=== PATIENT | male | born 1940 | race Caucasian/White ===

== ENCOUNTER 2017-06-27 16:23 | Emergency (ER) | payer MEDICARE, MEDICAID ==
[~2017-06-27] VITALS: Ht 172.7 cm; Wt 81.1 kg
[~2017-06-27 16:23] MED LIST: ALBU8.5H4 IH; ALBU8.5H8 INH; FOLI-43 PO; HYDR-3972 PO; HYDR-569 PO; LORA2TAB PO; PANT40TA39 PO; PROM25TA14 PO; THI100T PO
[2017-06-27 17:01] LABS: BASOPHILS # (AUTO) 0.3 X10'3 (0-0.2); BASOPHILS % (AUTO) 1.6 % (0-1); EOSINOPHILS # (AUTO) 0.2 X10'3 (0-0.9); EOSINOPHILS % (AUTO) 1.1 % (0-6); HEMATOCRIT 38.7 % (42.0-52.0); HEMOGLOBIN 12.6 g/dl (14.0-17.9); LYMPHOCYTES # (AUTO) 2.2 X10'3 (1.1-4.8); LYMPHOCYTES % (AUTO) 11.4 % (21-51); MEAN CORPUSCULAR HEMOGLOBIN 34.4 PG (27.0-31.0); MEAN CORPUSCULAR HGB CONC 32.5 % (33.0-36.5); MEAN CORPUSCULAR VOLUME 105.9 FL (78-98); MEAN PLATELET VOLUME 7.8 FL (7.4-10.4); MONOCYTES # (AUTO) 1.6 X10'3 (0-0.9); MONOCYTES % (AUTO) 8.4 % (2-12); NEUTROPHILS % (AUTO) 77.5 % (42-75); PLATELET COUNT 549 X10'3 (140-440); RED BLOOD COUNT 3.65 X10'6 (4.70-6.10); RED CELL DISTRIBUTION WIDTH 14.4 % (11.5-14.5); WHITE BLOOD COUNT 19.4 X10'3 (4.5-11.0)
[2017-06-27 17:12] LABS: PARTIAL THROMBOPLASTIN TIME 30 SECONDS (22-32); PROTHROMBIN TIME 10.8 SECONDS (9.0-12.0)
[2017-06-27 17:17] LABS: ALANINE AMINOTRANSFERASE 74 U/L (12-78); ALBUMIN/GLOBULIN RATIO 0.6 (1.1-1.5); ALKALINE PHOSPHATASE 120 IU/L (46-116); ANION GAP 11 (8-16); ASPARTATE AMINO TRANSFERASE 79 U/L (10-37); BILIRUBIN,TOTAL 0.4 MG/DL (0.1-1.0); BLOOD UREA NITROGEN 14 MG/DL (7-18); BUN/CREATININE RATIO 16.3 (5.4-32.0); CALCIUM 8.8 MG/DL (8.5-10.1); CHLORIDE 101 MMOL/L (99-107); CREATININE 0.86 MG/DL (0.60-1.10); GLUCOSE 119 MG/DL (70-104); POTASSIUM 3.9 MMOL/L (3.5-5.1); SODIUM 140 MMOL/L (135-145); TOTAL CARBON DIOXIDE 27.6 MMOL/L (24-32); TOTAL PROTEIN 7.7 G/DL (6.4-8.2); eGFR 86 ML/MIN
[2017-06-27] MEDS ORDERED: morphine 5 MG/ML injection IV ONE (19:05)
[2017-06-27] MEDS ORDERED: HYDROcodone/acetaminophen 10/325mg tab PO ONE (19:05)
[2017-06-27] MEDS ORDERED: HYDR-565 PO (19:35)
[2017-06-27 19:50] VITALS: BP 148/73
[2017-07-02] MEDS ORDERED: ONDA4TAB6 PO (06:11)
[2017-07-02] MEDS ORDERED: HYDR-565 PO (06:18)
[2017-07-02] MEDS ORDERED: METR500T4 PO (07:38)
[2017-07-02] MEDS ORDERED: LEVO500T2 PO (07:38)
== END 2017-06-27 19:51 | disposition home or self-care (01) ==
LOC: ER 16:23
DX: R07.89 Other chest pain (principal); J44.9 Chronic obstructive pulmonary disease, unspecified; G89.29 Other chronic pain; Z87.11 Personal history of peptic ulcer disease; Z88.5 Allergy status to narcotic agent
CPT/HCPCS: 36415; 71010; 80053; 84484; 85025; 85610; 85730; 93005; 96372; 99285; J2270

== ENCOUNTER 2017-07-07 12:21 | Inpatient (IN) | payer MEDICARE, MEDICAID ==
[~2017-07-07] VITALS: Ht 172.7 cm; Wt 87.3 kg
[~2017-07-07 12:21] MED LIST changes: +HYDR-565 PO; +LEVO500T2 PO; +METR500T4 PO; +ONDA4TAB6 PO; +atropine 0.1mg/ml 10ml syringe ONE; +calcium chloride 100 MG/1 ML inj IV ONE; +epiNEPHrine 0.1mg/ml 10ml syringe ONE; +etomidate 2mg/ml inj. ONE
[2017-07-07 14:06] LABS: BASOPHILS % (AUTO) 0.1 % (0-1); EOSINOPHILS # (AUTO) 0.1 X10'3 (0-0.9); HEMATOCRIT 36.4 % (42.0-52.0); HEMOGLOBIN 11.9 g/dl (14.0-17.9); LYMPHOCYTES # (AUTO) 1.6 X10'3 (1.1-4.8); LYMPHOCYTES % (AUTO) 10.8 % (21-51); MEAN CORPUSCULAR HEMOGLOBIN 33.9 PG (27.0-31.0); MEAN CORPUSCULAR HGB CONC 32.7 % (33.0-36.5); MEAN CORPUSCULAR VOLUME 103.8 FL (78-98); MEAN PLATELET VOLUME 7.6 FL (7.4-10.4); MONOCYTES # (AUTO) 1.3 X10'3 (0-0.9); MONOCYTES % (AUTO) 8.9 % (2-12); NEUTROPHILS # (AUTO) 11.9 X10'3 (1.8-7.7); NEUTROPHILS % (AUTO) 79.2 % (42-75); PLATELET COUNT 465 X10'3 (140-440); RED CELL DISTRIBUTION WIDTH 14.1 % (11.5-14.5); WHITE BLOOD COUNT 15.1 X10'3 (4.5-11.0)
[2017-07-07] MEDS ORDERED: normal saline 1000ML IV soln IVB ONE (14:10)
[2017-07-07] MEDS ORDERED: magnesium 2GM in 50ml NS 50 ML IV ONE (14:15)
[2017-07-07 14:16] LABS: PARTIAL THROMBOPLASTIN TIME 34 SECONDS (22-32); PROTHROMBIN TIME 10.8 SECONDS (9.0-12.0)
[2017-07-07 14:20] LABS: ALANINE AMINOTRANSFERASE 36 U/L (12-78); ALBUMIN 2.9 G/DL (3.4-5.0); ALBUMIN/GLOBULIN RATIO 0.6 (1.1-1.5); ALKALINE PHOSPHATASE 111 IU/L (46-116); ANION GAP 7 (8-16); ASPARTATE AMINO TRANSFERASE 45 U/L (10-37); BILIRUBIN,TOTAL 0.5 MG/DL (0.1-1.0); BLOOD UREA NITROGEN 16 MG/DL (7-18); CALCIUM 8.5 MG/DL (8.5-10.1); CHLORIDE 102 MMOL/L (99-107); GLUCOSE 106 MG/DL (70-104); POTASSIUM 4.1 MMOL/L (3.5-5.1); SODIUM 137 MMOL/L (135-145); TOTAL CARBON DIOXIDE 27.7 MMOL/L (24-32); TOTAL PROTEIN 7.6 G/DL (6.4-8.2); eGFR 72 ML/MIN
[2017-07-07 16:45] LABS: CLARITY,URINE CLEAR (Clear); GLUCOSE, URINE NEGATIVE (Neg); KETONES,URINE NEGATIVE (Neg); LEUKOCYTE ESTERASE ,URINE NEGATIVE (Neg); NITRITES, URINE NEGATIVE (Neg); OCCULT BLOOD,URINE NEGATIVE (Neg); PROTEIN,URINE NEGATIVE (Neg)
[2017-07-07 16:47] LABS: UA COLLECTION TYPE URINAL
[2017-07-07 16:48] LABS: COLOR,URINE AMBER (Yellow)
[2017-07-07] MEDS ORDERED: adenosine 3mg/ml 2ml vial IV ONE (17:55)
[2017-07-07] MEDS ORDERED: ondansetron/PF 4mg/2ml inj IV ONE (18:50)
[2017-07-07] MEDS ORDERED: HYDROmorphone 1 mg/ml syringe IV ONE (18:50)
[2017-07-07] MEDS ORDERED: normal saline 1000ml 1,000 ML IV ONE (20:35)
[2017-07-07] MEDS: HYDROmorphone inj. 0.5 MG/0.5 ML DISP.SYRIN IV PRN (21:35)
[2017-07-07] MEDS ORDERED: diltiazem 5mg/ml 5ml inj. IV ONE ×2 (22:25→22:30)
[2017-07-07] MEDS ORDERED: mag hydrox/Alum hydrox/simeth 30ml oral suspension PO PRN (23:15)
[2017-07-07] MEDS ORDERED: magnesium hydroxide 30ml (MOM) UD suspension PO PRN (23:15)
[2017-07-07] MEDS ORDERED: acetaminophen 325mg tablet PO PRN ×2 (23:15)
[2017-07-08] MEDS: thiamine 100mg tablet PO SCH ×2 (00:10→08:01)
[2017-07-08] MEDS: HYDROmorphone inj. 0.5 MG/0.5 ML DISP.SYRIN IV PRN ×5 (02:43→23:30)
[2017-07-08 07:19] LABS: BASOPHILS # (AUTO) 0.1 X10'3 (0-0.2); BASOPHILS % (AUTO) 0.6 % (0-1); EOSINOPHILS # (AUTO) 0.2 X10'3 (0-0.9); EOSINOPHILS % (AUTO) 2.2 % (0-6); HEMATOCRIT 31.6 % (42.0-52.0); HEMOGLOBIN 10.2 g/dl (14.0-17.9); LYMPHOCYTES # (AUTO) 1.8 X10'3 (1.1-4.8); LYMPHOCYTES % (AUTO) 16.5 % (21-51); MEAN CORPUSCULAR HEMOGLOBIN 33.3 PG (27.0-31.0); MEAN CORPUSCULAR HGB CONC 32.2 % (33.0-36.5); MEAN CORPUSCULAR VOLUME 103.7 FL (78-98); MEAN PLATELET VOLUME 7.4 FL (7.4-10.4); MONOCYTES # (AUTO) 1.2 X10'3 (0-0.9); NEUTROPHILS # (AUTO) 7.7 X10'3 (1.8-7.7); NEUTROPHILS % (AUTO) 69.7 % (42-75); PLATELET COUNT 436 X10'3 (140-440); RED BLOOD COUNT 3.05 X10'6 (4.70-6.10); RED CELL DISTRIBUTION WIDTH 14.2 % (11.5-14.5); WHITE BLOOD COUNT 11.1 X10'3 (4.5-11.0)
[2017-07-08 07:32] LABS: ALBUMIN 2.4 G/DL (3.4-5.0); ANION GAP 5 (8-16); BLOOD UREA NITROGEN 12 MG/DL (7-18); BUN/CREATININE RATIO 15.2 (5.4-32.0); CALCIUM 8.1 MG/DL (8.5-10.1); CHLORIDE 107 MMOL/L (99-107); CREATININE 0.79 MG/DL (0.60-1.10); GLUCOSE 92 MG/DL (70-104); POTASSIUM 4.2 MMOL/L (3.5-5.1); SODIUM 140 MMOL/L (135-145); TOTAL CARBON DIOXIDE 27.6 MMOL/L (24-32); eGFR > 90 ML/MIN
[2017-07-08] MEDS: predniSONE 5mg tablet PO SCH (08:01)
[2017-07-08] MEDS: fluconazole 100mg tablet PO SCH (08:01)
[2017-07-08] MEDS: pantoprazole 40mg Tablet.DR PO SCH (08:01)
[2017-07-08] MEDS: enoxaparin 40mg/0.4ml syringe SUBCUT SCH (08:02)
[2017-07-08 08:50] VITALS: BP 127/70
[2017-07-08] MEDS: diltiazem CD 180mg cap (once-daily) PO SCH (10:00)
[2017-07-08 11:00] VITALS: BP 120/69
[2017-07-08 15:00] VITALS: BP 121/63
[2017-07-08] MEDS: ipratropium/albuterol 3ml nebule NEB PRN ×2 (15:30→20:14)
[2017-07-08 19:00] VITALS: BP 114/60
[2017-07-08] MEDS: tamsulosin 0.4mg capsule PO SCH (20:34)
[2017-07-08] MEDS ORDERED: LIDOcaine Viscous 15ml cup MM ONE (20:55)
[2017-07-08] MEDS ORDERED: mag hydrox/Alum hydrox/simeth 30ml oral suspension PO ONE (20:55)
[2017-07-08] MEDS ORDERED: temazepam 15mg capsule PO ONE (22:50)
[2017-07-08 23:00] VITALS: BP 113/69
[2017-07-09 03:00] VITALS: BP 104/56
[2017-07-09 05:46] LABS: BASOPHILS % (AUTO) 0.3 % (0-1); EOSINOPHILS # (AUTO) 0.3 X10'3 (0-0.9); EOSINOPHILS % (AUTO) 2.4 % (0-6); HEMATOCRIT 28.4 % (42.0-52.0); LYMPHOCYTES # (AUTO) 1.6 X10'3 (1.1-4.8); LYMPHOCYTES % (AUTO) 14.7 % (21-51); MEAN CORPUSCULAR HGB CONC 31.6 % (33.0-36.5); MEAN CORPUSCULAR VOLUME 104.5 FL (78-98); MEAN PLATELET VOLUME 7.6 FL (7.4-10.4); MONOCYTES # (AUTO) 1.3 X10'3 (0-0.9); MONOCYTES % (AUTO) 12.4 % (2-12); NEUTROPHILS # (AUTO) 7.5 X10'3 (1.8-7.7); NEUTROPHILS % (AUTO) 70.2 % (42-75); PLATELET COUNT 382 X10'3 (140-440); RED BLOOD COUNT 2.72 X10'6 (4.70-6.10); WHITE BLOOD COUNT 10.7 X10'3 (4.5-11.0)
[2017-07-09 06:00] VITALS: BP 109/61
[2017-07-09 06:15] LABS: ALBUMIN 2.3 G/DL (3.4-5.0); ANION GAP 4 (8-16); BLOOD UREA NITROGEN 14 MG/DL (7-18); CHLORIDE 104 MMOL/L (99-107); GLUCOSE 123 MG/DL (70-104); POTASSIUM 3.9 MMOL/L (3.5-5.1); SODIUM 137 MMOL/L (135-145); TOTAL CARBON DIOXIDE 29.1 MMOL/L (24-32); eGFR > 90 ML/MIN
[2017-07-09] MEDS: HYDROmorphone inj. 0.5 MG/0.5 ML DISP.SYRIN IV PRN ×3 (08:40→21:13)
[2017-07-09] MEDS: predniSONE 5mg tablet PO SCH (08:49)
[2017-07-09] MEDS: pantoprazole 40mg Tablet.DR PO SCH (08:49)
[2017-07-09] MEDS: thiamine 100mg tablet PO SCH (08:49)
[2017-07-09] MEDS: diltiazem CD 180mg cap (once-daily) PO SCH (08:49)
[2017-07-09] MEDS: enoxaparin 40mg/0.4ml syringe SUBCUT SCH (08:50)
[2017-07-09] MEDS: fluconazole 100mg tablet PO SCH (08:54)
[2017-07-09 11:00] VITALS: BP 113/67
[2017-07-09] MEDS: HYDROcodone/acetaminophen 5mg/325mg tablet PO PRN (11:58)
[2017-07-09 15:00] VITALS: BP 135/56
[2017-07-09 19:00] VITALS: BP 125/56
[2017-07-09] MEDS: tamsulosin 0.4mg capsule PO SCH (21:13)
[2017-07-09 23:00] VITALS: BP 137/70
[2017-07-10] VITALS (10 sets, daily range): BP systolic 92–138; BP diastolic 39–66
[2017-07-10] MEDS: HYDROmorphone inj. 0.5 MG/0.5 ML DISP.SYRIN IV PRN ×3 (00:23→19:23)
[2017-07-10] MEDS: ondansetron/PF 4mg/2ml inj IV PRN (04:46)
[2017-07-10 06:19] LABS: BASOPHILS % (AUTO) 0.1 % (0-1); EOSINOPHILS # (AUTO) 0.3 X10'3 (0-0.9); HEMATOCRIT 23.8 % (42.0-52.0); HEMOGLOBIN 7.7 g/dl (14.0-17.9); LYMPHOCYTES # (AUTO) 1.2 X10'3 (1.1-4.8); LYMPHOCYTES % (AUTO) 8.3 % (21-51); MEAN CORPUSCULAR HEMOGLOBIN 33.7 PG (27.0-31.0); MEAN CORPUSCULAR HGB CONC 32.4 % (33.0-36.5); MEAN CORPUSCULAR VOLUME 103.9 FL (78-98); MONOCYTES # (AUTO) 1.2 X10'3 (0-0.9); MONOCYTES % (AUTO) 8.4 % (2-12); NEUTROPHILS # (AUTO) 11.6 X10'3 (1.8-7.7); NEUTROPHILS % (AUTO) 81.2 % (42-75); PLATELET COUNT 350 X10'3 (140-440); RED BLOOD COUNT 2.29 X10'6 (4.70-6.10); RED CELL DISTRIBUTION WIDTH 14.1 % (11.5-14.5); WHITE BLOOD COUNT 14.2 X10'3 (4.5-11.0)
[2017-07-10 06:58] LABS: ALBUMIN 2.2 G/DL (3.4-5.0); ANION GAP 7 (8-16); BLOOD UREA NITROGEN 11 MG/DL (7-18); BUN/CREATININE RATIO 12.8 (5.4-32.0); CHLORIDE 106 MMOL/L (99-107); CREATININE 0.86 MG/DL (0.60-1.10); GLUCOSE 144 MG/DL (70-104); POTASSIUM 3.8 MMOL/L (3.5-5.1); SODIUM 141 MMOL/L (135-145); TOTAL CARBON DIOXIDE 27.7 MMOL/L (24-32); eGFR 86 ML/MIN
[2017-07-10] MEDS: pantoprazole 40mg Tablet.DR PO SCH (08:18)
[2017-07-10] MEDS: fluconazole 100mg tablet PO SCH (08:18)
[2017-07-10] MEDS: diltiazem CD 180mg cap (once-daily) PO SCH (08:18)
[2017-07-10] MEDS: thiamine 100mg tablet PO SCH (08:18)
[2017-07-10] MEDS: predniSONE 5mg tablet PO SCH (08:19)
[2017-07-10 09:03] LABS: BASOPHILS % (AUTO) 0.2 % (0-1); EOSINOPHILS # (AUTO) 0.2 X10'3 (0-0.9); EOSINOPHILS % (AUTO) 1.5 % (0-6); HEMATOCRIT 23.9 % (42.0-52.0); HEMOGLOBIN 7.7 g/dl (14.0-17.9); LYMPHOCYTES # (AUTO) 1.3 X10'3 (1.1-4.8); LYMPHOCYTES % (AUTO) 9.9 % (21-51); MEAN CORPUSCULAR HEMOGLOBIN 33.4 PG (27.0-31.0); MEAN CORPUSCULAR VOLUME 104.4 FL (78-98); MEAN PLATELET VOLUME 7.1 FL (7.4-10.4); MONOCYTES # (AUTO) 1.1 X10'3 (0-0.9); MONOCYTES % (AUTO) 8.2 % (2-12); NEUTROPHILS # (AUTO) 10.5 X10'3 (1.8-7.7); NEUTROPHILS % (AUTO) 80.2 % (42-75); PLATELET COUNT 378 X10'3 (140-440); RED BLOOD COUNT 2.29 X10'6 (4.70-6.10); RED CELL DISTRIBUTION WIDTH 14.3 % (11.5-14.5); WHITE BLOOD COUNT 13.1 X10'3 (4.5-11.0)
[2017-07-10 09:46] LABS: OCCULT BLOOD STOOL POSITIVE (Neg)
[2017-07-10] MEDS: HYDROcodone/acetaminophen 5mg/325mg tablet PO PRN (12:24)
[2017-07-10] MEDS ORDERED: diphenhydrAMINE 25mg capsule PO ONE (14:50)
[2017-07-10] MEDS ORDERED: acetaminophen 325mg tablet PO ONE (14:50)
[2017-07-10] MEDS: pantoprazole 40MG/NS 100ML BAG 100 ML IV SCH ×3 (15:35→23:40)
[2017-07-10] MEDS: folic acid 1mg tablet PO SCH (15:39)
[2017-07-10] MEDS ORDERED: furosemide 40mg/4ml inj IV ONE (16:50)
[2017-07-10] MEDS: tamsulosin 0.4mg capsule PO SCH (20:53)
[2017-07-10] MEDS ORDERED: furosemide 40mg/4ml inj ONE (23:01)
[2017-07-10 23:38] LABS: BASOPHILS % (AUTO) 0.2 % (0-1); EOSINOPHILS # (AUTO) 0.2 X10'3 (0-0.9); EOSINOPHILS % (AUTO) 1.7 % (0-6); HEMOGLOBIN 7.2 g/dl (14.0-17.9); LYMPHOCYTES # (AUTO) 2.1 X10'3 (1.1-4.8); MEAN CORPUSCULAR HEMOGLOBIN 33.6 PG (27.0-31.0); MEAN CORPUSCULAR HGB CONC 33.1 % (33.0-36.5); MEAN CORPUSCULAR VOLUME 101.4 FL (78-98); MEAN PLATELET VOLUME 7.7 FL (7.4-10.4); MONOCYTES # (AUTO) 1.5 X10'3 (0-0.9); MONOCYTES % (AUTO) 13.6 % (2-12); NEUTROPHILS # (AUTO) 6.9 X10'3 (1.8-7.7); NEUTROPHILS % (AUTO) 64.5 % (42-75); PLATELET COUNT 321 X10'3 (140-440); RED BLOOD COUNT 2.14 X10'6 (4.70-6.10); RED CELL DISTRIBUTION WIDTH 14.7 % (11.5-14.5); WHITE BLOOD COUNT 10.7 X10'3 (4.5-11.0)
[2017-07-10 23:42] LABS: HEMATOCRIT 21.7 % (42.0-52.0)
[2017-07-11] VITALS (31 sets, daily range): BP systolic 86–149; BP diastolic 47–67
[2017-07-11] MEDS: pantoprazole 40MG/NS 100ML BAG 100 ML IV SCH ×5 (01:00→21:00)
[2017-07-11] MEDS: HYDROcodone/acetaminophen 5mg/325mg tablet PO PRN ×2 (01:32→21:21)
[2017-07-11] MEDS: HYDROmorphone inj. 0.5 MG/0.5 ML DISP.SYRIN IV PRN ×3 (04:57→19:12)
[2017-07-11 06:49] LABS: BASOPHILS % (AUTO) 0 % (0-1); EOSINOPHILS # (AUTO) 0.2 X10'3 (0-0.9); HEMATOCRIT 28.6 % (42.0-52.0); HEMOGLOBIN 9.5 g/dl (14.0-17.9); LYMPHOCYTES % (AUTO) 17.2 % (21-51); MEAN CORPUSCULAR HEMOGLOBIN 32.3 PG (27.0-31.0); MEAN CORPUSCULAR HGB CONC 33.1 % (33.0-36.5); MEAN CORPUSCULAR VOLUME 97.5 FL (78-98); MEAN PLATELET VOLUME 8.1 FL (7.4-10.4); MONOCYTES # (AUTO) 1.4 X10'3 (0-0.9); MONOCYTES % (AUTO) 12.2 % (2-12); NEUTROPHILS # (AUTO) 7.8 X10'3 (1.8-7.7); NEUTROPHILS % (AUTO) 68.6 % (42-75); PLATELET COUNT 285 X10'3 (140-440); RED BLOOD COUNT 2.93 X10'6 (4.70-6.10); RED CELL DISTRIBUTION WIDTH 16.5 % (11.5-14.5); WHITE BLOOD COUNT 11.4 X10'3 (4.5-11.0)
[2017-07-11 06:59] LABS: ALBUMIN 2.3 G/DL (3.4-5.0); ANION GAP 7 (8-16); BLOOD UREA NITROGEN 29 MG/DL (7-18); BUN/CREATININE RATIO 33.3 (5.4-32.0); CALCIUM 8.1 MG/DL (8.5-10.1); CHLORIDE 106 MMOL/L (99-107); CREATININE 0.87 MG/DL (0.60-1.10); GLUCOSE 98 MG/DL (70-104); POTASSIUM 4.4 MMOL/L (3.5-5.1); SODIUM 141 MMOL/L (135-145); TOTAL CARBON DIOXIDE 28.5 MMOL/L (24-32); eGFR 85 ML/MIN
[2017-07-11] MEDS ORDERED: fentaNYL/PF 50MCG/1 ML 2ML syringe ONE (07:00)
[2017-07-11] MEDS ORDERED: MIDAZolam 1mg/ml 10ml vial ONE (07:01)
[2017-07-11] MEDS ORDERED: LIDOcaine Viscous 15ml cup ONE (07:02)
[2017-07-11] MEDS ORDERED: normal saline 1000ml 1,000 ML IV SCH (08:36)
[2017-07-11] MEDS ORDERED: fentaNYL/PF 50MCG/1 ML 2ML syringe IV PRN (08:40)
[2017-07-11] MEDS ORDERED: LIDOcaine Viscous 15ml cup PO ONE (08:40)
[2017-07-11] MEDS ORDERED: simethicone 40mg/0.6ml oral drops 30ml MC ONE (08:40)
[2017-07-11] MEDS ORDERED: MIDAZolam 5mg/5ml vial IV PRN (08:40)
[2017-07-11] MEDS: predniSONE 5mg tablet PO SCH (09:04)
[2017-07-11] MEDS: diltiazem CD 180mg cap (once-daily) PO SCH (09:04)
[2017-07-11] MEDS: thiamine 100mg tablet PO SCH (09:04)
[2017-07-11] MEDS: folic acid 1mg tablet PO SCH (09:04)
[2017-07-11 13:33] LABS: BASOPHILS # (AUTO) 0.1 X10'3 (0-0.2); BASOPHILS % (AUTO) 0.8 % (0-1); EOSINOPHILS # (AUTO) 0.2 X10'3 (0-0.9); EOSINOPHILS % (AUTO) 2.3 % (0-6); HEMATOCRIT 27.1 % (42.0-52.0); HEMOGLOBIN 8.8 g/dl (14.0-17.9); MEAN CORPUSCULAR HEMOGLOBIN 31.7 PG (27.0-31.0); MEAN CORPUSCULAR HGB CONC 32.2 % (33.0-36.5); MEAN CORPUSCULAR VOLUME 98.4 FL (78-98); MEAN PLATELET VOLUME 7.9 FL (7.4-10.4); MONOCYTES # (AUTO) 0.8 X10'3 (0-0.9); MONOCYTES % (AUTO) 7.7 % (2-12); NEUTROPHILS # (AUTO) 8.3 X10'3 (1.8-7.7); NEUTROPHILS % (AUTO) 79.2 % (42-75); PLATELET COUNT 337 X10'3 (140-440); RED BLOOD COUNT 2.76 X10'6 (4.70-6.10); RED CELL DISTRIBUTION WIDTH 16.6 % (11.5-14.5); WHITE BLOOD COUNT 10.4 X10'3 (4.5-11.0)
[2017-07-11 19:11] LABS: BASOPHILS % (AUTO) 0.4 % (0-1); EOSINOPHILS # (AUTO) 0.2 X10'3 (0-0.9); EOSINOPHILS % (AUTO) 1.5 % (0-6); LYMPHOCYTES % (AUTO) 16.8 % (21-51); MEAN CORPUSCULAR HEMOGLOBIN 31.9 PG (27.0-31.0); MEAN CORPUSCULAR HGB CONC 32.5 % (33.0-36.5); MEAN CORPUSCULAR VOLUME 98.1 FL (78-98); MEAN PLATELET VOLUME 8.1 FL (7.4-10.4); MONOCYTES # (AUTO) 1.1 X10'3 (0-0.9); MONOCYTES % (AUTO) 9.1 % (2-12); NEUTROPHILS # (AUTO) 8.6 X10'3 (1.8-7.7); NEUTROPHILS % (AUTO) 72.2 % (42-75); PLATELET COUNT 273 X10'3 (140-440); RED BLOOD COUNT 2.14 X10'6 (4.70-6.10)
[2017-07-11] MEDS: tamsulosin 0.4mg capsule PO SCH (21:11)
[2017-07-12] VITALS (45 sets, daily range): BP systolic 39–200; BP diastolic 22–100
[2017-07-12] MEDS ORDERED: normal saline 1000ml 1,000 ML IV ONE ×2 (01:20→01:40)
[2017-07-12] MEDS: pantoprazole 40MG/NS 100ML BAG 100 ML IV SCH ×5 (01:40→20:21)
[2017-07-12 02:24] LABS: BASOPHILS % (AUTO) 0.3 % (0-1); EOSINOPHILS # (AUTO) 0.1 X10'3 (0-0.9); EOSINOPHILS % (AUTO) 1.1 % (0-6); LYMPHOCYTES # (AUTO) 1.6 X10'3 (1.1-4.8); LYMPHOCYTES % (AUTO) 14.8 % (21-51); MEAN CORPUSCULAR HGB CONC 33.3 % (33.0-36.5); MEAN CORPUSCULAR VOLUME 93.2 FL (78-98); MEAN PLATELET VOLUME 7.9 FL (7.4-10.4); MONOCYTES # (AUTO) 1.2 X10'3 (0-0.9); MONOCYTES % (AUTO) 11.2 % (2-12); NEUTROPHILS % (AUTO) 72.6 % (42-75); PLATELET COUNT 161 X10'3 (140-440); RED CELL DISTRIBUTION WIDTH 17.9 % (11.5-14.5)
[2017-07-12 02:26] LABS: HEMATOCRIT 18.6 % (42.0-52.0); HEMOGLOBIN 6.2 g/dl (14.0-17.9)
[2017-07-12 02:33] LABS: INR 1.3 INR; PROTHROMBIN TIME 13.2 SECONDS (9.0-12.0)
[2017-07-12] MEDS ORDERED: octreotide inj. 1,250 MCG in normal saline 250ml IV soln 243.75 ML IV SCH (02:35)
[2017-07-12] MEDS ORDERED: desmopressin inj. 24 MCG in normal saline 100ml IV soln 94 ML IV ONE (02:35)
[2017-07-12] MEDS ORDERED: octreotide 200mcg/ml 5ml vial ONE (02:40)
[2017-07-12 02:41] LABS: ALANINE AMINOTRANSFERASE 19 U/L (12-78); ALBUMIN 1.3 G/DL (3.4-5.0); ALBUMIN/GLOBULIN RATIO 0.6 (1.1-1.5); ALKALINE PHOSPHATASE 42 IU/L (46-116); ANION GAP 7 (8-16); ASPARTATE AMINO TRANSFERASE 25 U/L (10-37); BILIRUBIN,TOTAL 0.7 MG/DL (0.1-1.0); BLOOD UREA NITROGEN 30 MG/DL (7-18); BUN/CREATININE RATIO 28.6 (5.4-32.0); CALCIUM 6.7 MG/DL (8.5-10.1); CHLORIDE 111 MMOL/L (99-107); CREATININE 1.05 MG/DL (0.60-1.10); GLUCOSE 153 MG/DL (70-104); MAGNESIUM 1.4 MG/DL (1.5-2.4); PHOSPHORUS 3.9 MG/DL (2.3-4.5); POTASSIUM 4.6 MMOL/L (3.5-5.1); SODIUM 142 MMOL/L (135-145); TOTAL CARBON DIOXIDE 24.5 MMOL/L (24-32); TOTAL PROTEIN 3.4 G/DL (6.4-8.2); TROPONIN I < 0.04 NG/ML (0.0-0.05); eGFR 68 ML/MIN
[2017-07-12] MEDS ORDERED: DESMOPRESSIN ONE (02:41)
[2017-07-12] MEDS ORDERED: tranexamic acid inj. 800 MG in normal saline 100ml IV soln 92 ML IV ONE (02:55)
[2017-07-12] MEDS ORDERED: calcium chloride 100 MG/1 ML inj IV ONE ×4 (02:55→06:30)
[2017-07-12] MEDS ORDERED: tranexamic acid 100mg/ml inj. ONE (02:56)
[2017-07-12] MEDS ORDERED: succinylcholine 20mg/ml inj IV ONE (03:26)
[2017-07-12] MEDS ORDERED: NORepinephrine 8mg/ 250ml NS 250 ML IV ONE ×2 (03:33→17:44)
[2017-07-12] MEDS ORDERED: vasoPRESSIN 20 units/ml inj. ONE ×2 (03:35→03:37)
[2017-07-12] MEDS ORDERED: ipratropium/albuterol 3ml nebule NEB PRN (03:45)
[2017-07-12] MEDS ORDERED: MIDAZolam 5mg/ml 2ml vial ONE ×2 (03:45→03:52)
[2017-07-12] MEDS ORDERED: midazolam 100mg in NS 100ml 100 ML IV PRN (03:45)
[2017-07-12] MEDS ORDERED: furosemide 40mg/4ml inj ONE (04:09)
[2017-07-12] MEDS ORDERED: furosemide 40mg/4ml inj IV ONE ×2 (04:10→11:50)
[2017-07-12 04:21] LABS: ABG BASE EXCESS -8.4 mmol/L (-2.0-3.0); ABG HCO3 17.1 mmol/L (22.0-26.0); ABG OXYGEN SATURATION 98.6 % (95-98); ABG PCO2 (T) 33.6 mmHg (35.0-48.0); ABG PH (T) 7.322 (7.350-7.450); ABG PO2 (T) 187.5 mmHg (83-108); FCOHb 0.3 % (0.5-1.5); FMetHb 0.1 % (0.3-1.12); FO2Hb 98.2 % (94-100); MINUTE VOLUME 10 L/min; PATIENT TEMPERATURE 36.1; PEEP 5 cm H2O; RESPIRATORY RATE 18 b/min; RESPIRATORY RATE (OBSERVED) 20 b/min; TIDAL VOLUME 450 mL
[2017-07-12 04:25] LABS: BASOPHILS % (AUTO) 0.2 % (0-1); EOSINOPHILS # (AUTO) 0.1 X10'3 (0-0.9); EOSINOPHILS % (AUTO) 1.2 % (0-6); HEMATOCRIT 22.6 % (42.0-52.0); HEMOGLOBIN 7.5 g/dl (14.0-17.9); LYMPHOCYTES % (AUTO) 8.9 % (21-51); MEAN CORPUSCULAR HEMOGLOBIN 30.8 PG (27.0-31.0); MEAN CORPUSCULAR HGB CONC 33.3 % (33.0-36.5); MEAN CORPUSCULAR VOLUME 92.5 FL (78-98); MONOCYTES # (AUTO) 0.7 X10'3 (0-0.9); MONOCYTES % (AUTO) 5.9 % (2-12); NEUTROPHILS # (AUTO) 9.5 X10'3 (1.8-7.7); NEUTROPHILS % (AUTO) 83.8 % (42-75); PLATELET COUNT 107 X10'3 (140-440); RED BLOOD COUNT 2.44 X10'6 (4.70-6.10); RED CELL DISTRIBUTION WIDTH 16.8 % (11.5-14.5); WHITE BLOOD COUNT 11.3 X10'3 (4.5-11.0)
[2017-07-12 04:34] LABS: INR 1.3 INR; PROTHROMBIN TIME 13.4 SECONDS (9.0-12.0)
[2017-07-12 04:38] LABS: ALANINE AMINOTRANSFERASE 20 U/L (12-78); ALBUMIN 1.5 G/DL (3.4-5.0); ALBUMIN/GLOBULIN RATIO 0.8 (1.1-1.5); ALKALINE PHOSPHATASE 45 IU/L (46-116); ANION GAP 12 (8-16); ASPARTATE AMINO TRANSFERASE 29 U/L (10-37); BILIRUBIN,TOTAL 0.7 MG/DL (0.1-1.0); BLOOD UREA NITROGEN 30 MG/DL (7-18); BUN/CREATININE RATIO 22.6 (5.4-32.0); CALCIUM 8.8 MG/DL (8.5-10.1); CHLORIDE 109 MMOL/L (99-107); CREATININE 1.33 MG/DL (0.60-1.10); GLUCOSE 224 MG/DL (70-104); POTASSIUM 4.6 MMOL/L (3.5-5.1); SODIUM 140 MMOL/L (135-145); TOTAL CARBON DIOXIDE 18.8 MMOL/L (24-32); TOTAL PROTEIN 3.5 G/DL (6.4-8.2); eGFR 52 ML/MIN
[2017-07-12] MEDS: FENTANYL-0.9 % NACL/PF 100 ML IV PRN ×2 (05:27→16:16)
[2017-07-12] MEDS: midazolam 100mg in NS 100ml 100 ML IV PRN ×2 (05:28→16:16)
[2017-07-12] MEDS ORDERED: MIDAZolam 1mg/ml 10ml vial ONE (05:44)
[2017-07-12] MEDS ORDERED: fentaNYL/PF 50MCG/1 ML 2ML syringe ONE (05:44)
[2017-07-12] MEDS ORDERED: LIDOcaine Viscous 15ml cup ONE (05:44)
[2017-07-12] MEDS ORDERED: epiNEPHrine 0.1mg/ml 10ml syringe ONE (05:46)
[2017-07-12] MEDS ORDERED: clindamycin phosphate 150mg/ml inj. ONE (06:39)
[2017-07-12] MEDS ORDERED: gentamicin 40 MG/1 ML inj ONE (06:39)
[2017-07-12] MEDS ORDERED: heparin 10,000 units/1 ML INJ ONE ×2 (06:56→09:14)
[2017-07-12] MEDS ORDERED: midazolam 2 mg/2 ml injection ONE ×2 (07:19→07:54)
[2017-07-12] MEDS ORDERED: fentaNYL /PF 50mcg/ml 5ml ampule ONE (07:19)
[2017-07-12] MEDS ORDERED: rocuronium 10mg/ml inj IV ONE ×2 (07:23→08:54)
[2017-07-12] MEDS ORDERED: phenylephrine 10mg/ml inj IV ONE (07:23)
[2017-07-12] MEDS ORDERED: sevoflurane 250ml liquid IH ONE (07:30)
[2017-07-12] MEDS ORDERED: ceFOXitin 1000 MG inj ONE ×2 (07:51)
[2017-07-12] MEDS ORDERED: normal saline 1000ml 1,000 ML IV SCH (07:57)
[2017-07-12] MEDS ORDERED: LIDOcaine Viscous 15ml cup PO ONE (08:00)
[2017-07-12] MEDS ORDERED: MIDAZolam 5mg/5ml vial IV PRN (08:00)
[2017-07-12] MEDS: folic acid 1mg tablet PO SCH (08:00)
[2017-07-12] MEDS ORDERED: simethicone 40mg/0.6ml oral drops 30ml MC ONE (08:00)
[2017-07-12] MEDS: predniSONE 5mg tablet PO SCH (08:00)
[2017-07-12] MEDS ORDERED: fentaNYL/PF 50MCG/1 ML 2ML syringe IV PRN (08:00)
[2017-07-12] MEDS: diltiazem CD 180mg cap (once-daily) PO SCH (08:00)
[2017-07-12] MEDS: thiamine 100mg tablet PO SCH (08:00)
[2017-07-12 08:30] LABS: HEMOGLOBIN 6.8 g/dl (14.0-17.9)
[2017-07-12 08:40] LABS: ABG BASE EXCESS -5.5 mmol/L (-2.0-3.0); ABG HCO3 20.4 mmol/L (22.0-26.0); ABG OXYGEN SATURATION 97.5 % (95-98); ABG PCO2 (T) 39.2 mmHg (35.0-48.0); ABG PH (T) 7.328 (7.350-7.450); ABG PO2 (T) 110.9 mmHg (83-108); ALLEN'S TEST Positive; FCOHb 0.3 % (0.5-1.5); FMetHb 0.3 % (0.3-1.12); FO2Hb 96.9 % (94-100); PATIENT TEMPERATURE 35.4; TOTAL HEMOGLOBIN 9.8 G/dl (14.0-18.0)
[2017-07-12 09:24] LABS: PLATELET COUNT 40 X10'3 (140-440)
[2017-07-12 09:32] LABS: D-DIMER 0.92 MG/L FEU (0-0.50); INR 1.4 INR; PARTIAL THROMBOPLASTIN TIME 38 SECONDS (22-32); PROTHROMBIN TIME 14.3 SECONDS (9.0-12.0)
[2017-07-12 09:48] LABS: ANION GAP 4 (8-16); BLOOD UREA NITROGEN 28 MG/DL (7-18); BUN/CREATININE RATIO 25.9 (5.4-32.0); CALCIUM 7.8 MG/DL (8.5-10.1); CHLORIDE 113 MMOL/L (99-107); CREATININE 1.08 MG/DL (0.60-1.10); GLUCOSE 181 MG/DL (70-104); POTASSIUM 5.8 MMOL/L (3.5-5.1); SODIUM 141 MMOL/L (135-145); TOTAL CARBON DIOXIDE 23.6 MMOL/L (24-32); eGFR 66 ML/MIN
[2017-07-12] MEDS: normal saline 1000ml 1,000 ML IV SCH (11:50)
[2017-07-12 12:43] LABS: ALANINE AMINOTRANSFERASE 34 U/L (12-78); ALBUMIN 2.1 G/DL (3.4-5.0); ALBUMIN/GLOBULIN RATIO 1.3 (1.1-1.5); ALKALINE PHOSPHATASE 39 IU/L (46-116); ANION GAP 8 (8-16); ASPARTATE AMINO TRANSFERASE 48 U/L (10-37); BILIRUBIN,TOTAL 3.4 MG/DL (0.1-1.0); BLOOD UREA NITROGEN 29 MG/DL (7-18); BUN/CREATININE RATIO 23.8 (5.4-32.0); CALCIUM 7.6 MG/DL (8.5-10.1); CHLORIDE 115 MMOL/L (99-107); CREATININE 1.22 MG/DL (0.60-1.10); GLUCOSE 128 MG/DL (70-104); MAGNESIUM 1.1 MG/DL (1.5-2.4); PHOSPHORUS 4.5 MG/DL (2.3-4.5); POTASSIUM 5.1 MMOL/L (3.5-5.1); SODIUM 141 MMOL/L (135-145); TOTAL CARBON DIOXIDE 18.5 MMOL/L (24-32); TOTAL PROTEIN 3.7 G/DL (6.4-8.2); eGFR 57 ML/MIN
[2017-07-12 13:01] LABS: ABG BASE EXCESS -11.2 mmol/L (-2.0-3.0); ABG HCO3 14.9 mmol/L (22.0-26.0); ABG OXYGEN SATURATION 87.5 % (95-98); ABG PCO2 (T) 34.5 mmHg (35.0-48.0); ABG PH (T) 7.254 (7.350-7.450); ABG PO2 (T) 53.5 mmHg (83-108); FCOHb 1.1 % (0.5-1.5); FMetHb 0.3 % (0.3-1.12); FO2Hb 86.3 % (94-100); MINUTE VOLUME 18 L/min; PEEP 5 cm H2O; RESPIRATORY RATE 18 b/min; RESPIRATORY RATE (OBSERVED) 37 b/min; TIDAL VOLUME 450 mL; TOTAL HEMOGLOBIN 15.3 G/dl (14.0-18.0)
[2017-07-12 13:02] LABS: D-DIMER 3.29 MG/L FEU (0-0.50); INR 1.3 INR; PARTIAL THROMBOPLASTIN TIME 31 SECONDS (22-32); PROTHROMBIN TIME 13.2 SECONDS (9.0-12.0)
[2017-07-12 13:28] LABS: BASOPHILS % (AUTO) 0 % (0-1); EOSINOPHILS % (AUTO) 0.1 % (0-6); HEMATOCRIT 43.4 % (42.0-52.0); LYMPHOCYTES # (AUTO) 0.8 X10'3 (1.1-4.8); LYMPHOCYTES % (AUTO) 5.9 % (21-51); MONOCYTES % (AUTO) 0.3 % (2-12); NEUTROPHILS # (AUTO) 12.9 X10'3 (1.8-7.7); NEUTROPHILS % (AUTO) 93.7 % (42-75); RED CELL DISTRIBUTION WIDTH 14.7 % (11.5-14.5)
[2017-07-12] MEDS ORDERED: CISatracurium **Bolus** 2 mg/ml inj IV PRN (13:35)
[2017-07-12] MEDS ORDERED: magnesium 4gm in 100ml NS 100 ML IV PRN (13:35)
[2017-07-12] MEDS ORDERED: magnesium 2GM in 50ml NS 50 ML IV PRN (13:35)
[2017-07-12 13:41] LABS: HEMOGLOBIN 14.9 g/dl (14.0-17.9); MEAN CORPUSCULAR HGB CONC 34.4 % (33.0-36.5); MEAN CORPUSCULAR VOLUME 90.2 FL (78-98); MEAN PLATELET VOLUME 8.4 FL (7.4-10.4); PLATELET COUNT 82 X10'3 (140-440); RED BLOOD COUNT 4.81 X10'6 (4.70-6.10); WHITE BLOOD COUNT 13.8 X10'3 (4.5-11.0)
[2017-07-12 13:50] LABS: PLATELET COUNT 82 X10'3 (140-440)
[2017-07-12 13:51] LABS: ABG BASE EXCESS -12.5 mmol/L (-2.0-3.0); ABG HCO3 13.1 mmol/L (22.0-26.0); ABG PH (T) 7.258 (7.350-7.450); ABG PO2 (T) 83.4 mmHg (83-108); FCOHb 0.8 % (0.5-1.5); FMetHb 0.3 % (0.3-1.12); FO2Hb 94.9 % (94-100); MINUTE VOLUME 21 L/min; PEEP 10 cm H2O; RESPIRATORY RATE 12 b/min; RESPIRATORY RATE (OBSERVED) 46 b/min; TOTAL HEMOGLOBIN 15.7 G/dl (14.0-18.0)
[2017-07-12 13:54] LABS: BURR CELLS 1+; PLATELET ESTIMATE DECREASED; POLYCHROMASIA FEW; TOTAL CELLS COUNTED 100
[2017-07-12 14:00] LABS: OXYGEN SATURATION (MIXED VEN) 55.1 % (60-80); PO2 MIXED VENOUS (TEMP COR) 28.4 mmHg (35-46)
[2017-07-12] MEDS ORDERED: hydrocortisone sod succ/PF 100mg/2ml inj. IV SCH (14:00)
[2017-07-12 14:11] LABS: ISTAT HGB 7.8 g/dl (14.0-18.0); ISTAT IONIZED CALCIUM 1.3 mmol/L (1.03-1.32); ISTAT K 5.3 mmol/L (3.5-5.1)
[2017-07-12 14:46] LABS: ABG BASE EXCESS -14.4 mmol/L (-2.0-3.0); ABG HCO3 14.8 mmol/L (22.0-26.0); ABG OXYGEN SATURATION 97.6 % (95-98); ABG PCO2 (T) 46.4 mmHg (35.0-48.0); ABG PH (T) 7.121 (7.350-7.450); ABG PO2 (T) 117.4 mmHg (83-108); FCOHb 0.5 % (0.5-1.5); FMetHb 0.3 % (0.3-1.12); FO2Hb 96.8 % (94-100); MINUTE VOLUME 8 L/min; PEEP 10 cm H2O; RESPIRATORY RATE 14 b/min; RESPIRATORY RATE (OBSERVED) 14 b/min; TOTAL HEMOGLOBIN 16.2 G/dl (14.0-18.0)
[2017-07-12] MEDS: methylPREDNISolone sod succ 125mg/2ml vial IV SCH ×2 (14:54→19:51)
[2017-07-12] MEDS: ceFOXitin 2 GM ADDvantage bag 100 ML IV SCH ×2 (14:55→19:51)
[2017-07-12 15:00] LABS: PO2 MIXED VENOUS (TEMP COR) 43.9 mmHg (35-46)
[2017-07-12] MEDS ORDERED: sodium bicarb (8.4%) ped inj. 50 MEQ in normal saline 100ml IV soln 100 ML IV ONE (15:35)
[2017-07-12] MEDS: sodium bicarbonate (8.4%) inj. 100 MEQ in dextrose 5%-water 1,000 ML IV SCH ×2 (16:27→16:53)
[2017-07-12] MEDS ORDERED: sodium bicarbonate (8.4%) 1 mEq/ml syringe IV ONE (16:30)
[2017-07-12] MEDS: vasopressin inj. 60 UNIT in normal saline 100ml IV soln 97 ML IV SCH (16:53)
[2017-07-12 17:46] LABS: ABG BASE EXCESS -13.6 mmol/L (-2.0-3.0); ABG HCO3 16.3 mmol/L (22.0-26.0); ABG OXYGEN SATURATION 93.7 % (95-98); ABG PCO2 (T) 53.8 mmHg (35.0-48.0); ABG PO2 (T) 78.8 mmHg (83-108); FCOHb 0.1 % (0.5-1.5); FMetHb 0.3 % (0.3-1.12); FO2Hb 93.3 % (94-100); MINUTE VOLUME 9 L/min; PEEP 5 cm H2O; RESPIRATORY RATE 16 b/min; RESPIRATORY RATE (OBSERVED) 16 b/min
[2017-07-12 19:48] LABS: BASOPHILS % (AUTO) 0.1 % (0-1); EOSINOPHILS % (AUTO) 0 % (0-6); HEMATOCRIT 43.1 % (42.0-52.0); HEMOGLOBIN 14.5 g/dl (14.0-17.9); LYMPHOCYTES # (AUTO) 0.5 X10'3 (1.1-4.8); LYMPHOCYTES % (AUTO) 1.2 % (21-51); MEAN CORPUSCULAR HEMOGLOBIN 30.6 PG (27.0-31.0); MEAN CORPUSCULAR HGB CONC 33.8 % (33.0-36.5); MEAN CORPUSCULAR VOLUME 90.8 FL (78-98); MEAN PLATELET VOLUME 9.4 FL (7.4-10.4); MONOCYTES # (AUTO) 0.9 X10'3 (0-0.9); NEUTROPHILS # (AUTO) 42.9 X10'3 (1.8-7.7); NEUTROPHILS % (AUTO) 96.7 % (42-75); PLATELET COUNT 75 X10'3 (140-440); RED BLOOD COUNT 4.74 X10'6 (4.70-6.10); RED CELL DISTRIBUTION WIDTH 15.1 % (11.5-14.5)
[2017-07-12] MEDS: tamsulosin 0.4mg capsule PO SCH (19:49)
[2017-07-12 19:59] LABS: WHITE BLOOD COUNT 44.4 X10'3 (4.5-11.0)
[2017-07-12 20:00] LABS: PLATELET COUNT 75 X10'3 (140-440)
[2017-07-12 20:03] LABS: ALANINE AMINOTRANSFERASE 63 U/L (12-78); ALBUMIN 1.6 G/DL (3.4-5.0); ALBUMIN/GLOBULIN RATIO 0.8 (1.1-1.5); ALKALINE PHOSPHATASE 56 IU/L (46-116); ANION GAP 10 (8-16); ASPARTATE AMINO TRANSFERASE 168 U/L (10-37); BILIRUBIN,TOTAL 2.2 MG/DL (0.1-1.0); BLOOD UREA NITROGEN 33 MG/DL (7-18); BUN/CREATININE RATIO 14.1 (5.4-32.0); CALCIUM 7.7 MG/DL (8.5-10.1); CHLORIDE 114 MMOL/L (99-107); CREATININE 2.34 MG/DL (0.60-1.10); GLUCOSE 151 MG/DL (70-104); PHOSPHORUS 4.8 MG/DL (2.3-4.5); POTASSIUM 4.7 MMOL/L (3.5-5.1); SODIUM 143 MMOL/L (135-145); TOTAL CARBON DIOXIDE 18.9 MMOL/L (24-32); TOTAL PROTEIN 3.5 G/DL (6.4-8.2); eGFR 27 ML/MIN
[2017-07-12] MEDS ORDERED: vancomycin/NS 1 GM ADD-VANTAGE 250 ML IV ONE (20:05)
[2017-07-12 20:11] LABS: D-DIMER 5.79 MG/L FEU (0-0.50); INR 1.4 INR; PARTIAL THROMBOPLASTIN TIME 34 SECONDS (22-32); PROTHROMBIN TIME 13.9 SECONDS (9.0-12.0)
[2017-07-12 20:17] LABS: NUCLEATED RED BLOOD CELLS 2 /100WBC (0-0); TOTAL CELLS COUNTED 100
[2017-07-12 20:18] LABS: LARGE PLATELETS FEW; PLATELET ESTIMATE DECREASED
[2017-07-12] MEDS: metroNIDAZOLE-Flagyl 500mg/NS 100 ML IV SCH (20:20)
[2017-07-12 22:45] LABS: ABG BASE EXCESS -9.7 mmol/L (-2.0-3.0); ABG HCO3 16.1 mmol/L (22.0-26.0); ABG OXYGEN SATURATION 96.2 % (95-98); ABG PCO2 (T) 36.6 mmHg (35.0-48.0); ABG PH (T) 7.267 (7.350-7.450); ABG PO2 (T) 89.8 mmHg (83-108); FCOHb 0.3 % (0.5-1.5); FMetHb 0.2 % (0.3-1.12); FO2Hb 95.7 % (94-100); MINUTE VOLUME 14 L/min; PATIENT TEMPERATURE 37.8; PEEP 5 cm H2O; RESPIRATORY RATE 20 b/min; RESPIRATORY RATE (OBSERVED) 23 b/min
[2017-07-13] VITALS (24 sets, daily range): BP systolic 92–124; BP diastolic 44–60
[2017-07-13] MEDS: pantoprazole 40MG/NS 100ML BAG 100 ML IV SCH ×5 (01:31→21:00)
[2017-07-13] MEDS: methylPREDNISolone sod succ 125mg/2ml vial IV SCH ×4 (01:31→20:23)
[2017-07-13] MEDS: ceFOXitin 2 GM ADDvantage bag 100 ML IV SCH (01:31)
[2017-07-13] MEDS: sodium bicarbonate (8.4%) inj. 100 MEQ in dextrose 5%-water 1,000 ML IV SCH ×3 (01:32→20:45)
[2017-07-13] MEDS: NORepinephrine 8mg/ 250ml NS 250 ML IV PRN (01:33)
[2017-07-13 03:09] LABS: BASOPHILS % (AUTO) 0 % (0-1); EOSINOPHILS % (AUTO) 0 % (0-6); HEMATOCRIT 38.8 % (42.0-52.0); HEMOGLOBIN 13.1 g/dl (14.0-17.9); LYMPHOCYTES # (AUTO) 0.9 X10'3 (1.1-4.8); LYMPHOCYTES % (AUTO) 1.6 % (21-51); MEAN CORPUSCULAR HEMOGLOBIN 30.8 PG (27.0-31.0); MEAN CORPUSCULAR HGB CONC 33.8 % (33.0-36.5); MEAN CORPUSCULAR VOLUME 91.2 FL (78-98); MEAN PLATELET VOLUME 11.6 FL (7.4-10.4); MONOCYTES # (AUTO) 0.7 X10'3 (0-0.9); MONOCYTES % (AUTO) 1.3 % (2-12); NEUTROPHILS # (AUTO) 54.9 X10'3 (1.8-7.7); NEUTROPHILS % (AUTO) 97.1 % (42-75); PLATELET COUNT 86 X10'3 (140-440); RED BLOOD COUNT 4.25 X10'6 (4.70-6.10); RED CELL DISTRIBUTION WIDTH 14.7 % (11.5-14.5)
[2017-07-13 03:11] LABS: WHITE BLOOD COUNT 56.6 X10'3 (4.5-11.0)
[2017-07-13 03:21] LABS: TOTAL CELLS COUNTED 100
[2017-07-13 03:22] LABS: PLATELET ESTIMATE DECREASED; TOXIC GRANULATION 1+
[2017-07-13 03:23] LABS: ALANINE AMINOTRANSFERASE 257 U/L (12-78); ALBUMIN 1.5 G/DL (3.4-5.0); ALBUMIN/GLOBULIN RATIO 0.8 (1.1-1.5); ALKALINE PHOSPHATASE 53 IU/L (46-116); ANION GAP 9 (8-16); ASPARTATE AMINO TRANSFERASE 702 U/L (10-37); BLOOD UREA NITROGEN 37 MG/DL (7-18); BUN/CREATININE RATIO 12.4 (5.4-32.0); CALCIUM 7.1 MG/DL (8.5-10.1); CHLORIDE 112 MMOL/L (99-107); CREATININE 2.98 MG/DL (0.60-1.10); GLUCOSE 201 MG/DL (70-104); PHOSPHORUS 4.9 MG/DL (2.3-4.5); POTASSIUM 5.6 MMOL/L (3.5-5.1); SODIUM 142 MMOL/L (135-145); TOTAL CARBON DIOXIDE 21.4 MMOL/L (24-32); TOTAL PROTEIN 3.3 G/DL (6.4-8.2); eGFR 20 ML/MIN
[2017-07-13 03:31] LABS: INR 1.3 INR; PARTIAL THROMBOPLASTIN TIME 37 SECONDS (22-32); PROTHROMBIN TIME 13.2 SECONDS (9.0-12.0)
[2017-07-13 03:40] LABS: ABG BASE EXCESS -8.3 mmol/L (-2.0-3.0); ABG PCO2 (T) 35.9 mmHg (35.0-48.0); ABG PH (T) 7.298 (7.350-7.450); ABG PO2 (T) 89.2 mmHg (83-108); FCOHb 0.3 % (0.5-1.5); FMetHb 0.2 % (0.3-1.12); FO2Hb 95.5 % (94-100); MINUTE VOLUME 14 L/min; PATIENT TEMPERATURE 37.8; PEEP 5 cm H2O; RESPIRATORY RATE 20 b/min; RESPIRATORY RATE (OBSERVED) 24 b/min; TOTAL HEMOGLOBIN 13.5 G/dl (14.0-18.0)
[2017-07-13 03:50] LABS: MAGNESIUM 2.6 MG/DL (1.5-2.4)
[2017-07-13 03:53] LABS: PLATELET COUNT 86 X10'3 (140-440)
[2017-07-13] MEDS: FENTANYL-0.9 % NACL/PF 100 ML IV PRN ×2 (04:24→20:46)
[2017-07-13] MEDS: diltiazem CD 180mg cap (once-daily) PO SCH (06:44)
[2017-07-13] MEDS: thiamine 100mg tablet PO SCH (06:45)
[2017-07-13] MEDS: predniSONE 5mg tablet PO SCH (06:45)
[2017-07-13] MEDS: folic acid 1mg tablet PO SCH (06:45)
[2017-07-13] MEDS: mineral oil/petrolatum ophthal oint EACHEYE SCH ×3 (08:00→20:22)
[2017-07-13] MEDS: metroNIDAZOLE-Flagyl 500mg/NS 100 ML IV SCH ×2 (08:00→20:23)
[2017-07-13] MEDS ORDERED: dextrose ORAL solution 15 GM/59 ML bottle PO PRN ×2 (11:00)
[2017-07-13] MEDS ORDERED: dextrose 50%-water 50ml dispensing syringe IV PRN ×2 (11:00)
[2017-07-13] MEDS ORDERED: glucagon, human recombinant 1mg kit SUBCUT PRN (11:00)
[2017-07-13 12:05] LABS: ABG BASE EXCESS -5.7 mmol/L (-2.0-3.0); ABG HCO3 18.7 mmol/L (22.0-26.0); ABG OXYGEN SATURATION 91.7 % (95-98); ABG PCO2 (T) 33.6 mmHg (35.0-48.0); ABG PH (T) 7.364 (7.350-7.450); ABG PO2 (T) 61.9 mmHg (83-108); FCOHb 0.3 % (0.5-1.5); FMetHb 0.2 % (0.3-1.12); FO2Hb 91.2 % (94-100); MINUTE VOLUME 15 L/min; PEEP 5 cm H2O; RESPIRATORY RATE 20 b/min; RESPIRATORY RATE (OBSERVED) 28 b/min; TOTAL HEMOGLOBIN 13.2 G/dl (14.0-18.0)
[2017-07-13 12:55] LABS: HEMOGLOBIN A1C 5.1 % (4.5-6.2)
[2017-07-13 14:00] LABS: BASOPHILS % (AUTO) 0 % (0-1); EOSINOPHILS % (AUTO) 0 % (0-6); HEMATOCRIT 37.7 % (42.0-52.0); HEMOGLOBIN 12.8 g/dl (14.0-17.9); LYMPHOCYTES # (AUTO) 1.4 X10'3 (1.1-4.8); LYMPHOCYTES % (AUTO) 2.3 % (21-51); MEAN CORPUSCULAR HGB CONC 33.8 % (33.0-36.5); MEAN CORPUSCULAR VOLUME 91.7 FL (78-98); MEAN PLATELET VOLUME 10.9 FL (7.4-10.4); MONOCYTES # (AUTO) 1.6 X10'3 (0-0.9); MONOCYTES % (AUTO) 2.6 % (2-12); NEUTROPHILS # (AUTO) 58.4 X10'3 (1.8-7.7); NEUTROPHILS % (AUTO) 95.1 % (42-75); PLATELET COUNT 98 X10'3 (140-440); RED BLOOD COUNT 4.12 X10'6 (4.70-6.10); RED CELL DISTRIBUTION WIDTH 15.3 % (11.5-14.5)
[2017-07-13 14:03] LABS: WHITE BLOOD COUNT 61.4 X10'3 (4.5-11.0)
[2017-07-13 14:23] LABS: ALANINE AMINOTRANSFERASE 511 U/L (12-78); ALBUMIN 1.4 G/DL (3.4-5.0); ALBUMIN/GLOBULIN RATIO 0.6 (1.1-1.5); ALKALINE PHOSPHATASE 66 IU/L (46-116); ANION GAP 7 (8-16); ASPARTATE AMINO TRANSFERASE 1190 U/L (10-37); BILIRUBIN,TOTAL 2.1 MG/DL (0.1-1.0); BLOOD UREA NITROGEN 48 MG/DL (7-18); BUN/CREATININE RATIO 14.3 (5.4-32.0); CALCIUM 7.3 MG/DL (8.5-10.1); CHLORIDE 110 MMOL/L (99-107); CREATININE 3.36 MG/DL (0.60-1.10); GLUCOSE 180 MG/DL (70-104); MAGNESIUM 2.5 MG/DL (1.5-2.4); PHOSPHORUS 5.1 MG/DL (2.3-4.5); POTASSIUM 5.6 MMOL/L (3.5-5.1); SODIUM 140 MMOL/L (135-145); TOTAL PROTEIN 3.8 G/DL (6.4-8.2); eGFR 18 ML/MIN
[2017-07-13 14:26] LABS: D-DIMER 4.79 MG/L FEU (0-0.50); INR 1.2 INR; PARTIAL THROMBOPLASTIN TIME 35 SECONDS (22-32); PROTHROMBIN TIME 12.6 SECONDS (9.0-12.0)
[2017-07-13 14:32] LABS: BANDS% (MANUAL) 19 % (0-10); LYMPHOCYTES % (MANUAL) 1 % (21-51); MONOCYTES % (MANUAL) 6 % (2-12); NEUTROPHILS % (MANUAL) 76 % (42-75); PLATELET ESTIMATE DECREASED; TOTAL CELLS COUNTED 100
[2017-07-13 14:33] LABS: BURR CELLS 1+
[2017-07-13] MEDS: cefepime 2g/NS 100ml ADVANTAGE 100 ML IV SCH (14:49)
[2017-07-13 15:06] LABS: PLATELET COUNT 98 X10'3 (140-440)
[2017-07-13] MEDS: insulin Lispro (HumaLOG) vial - multi-dose SQ SCH ×2 (15:08→20:43)
[2017-07-13 16:32] LABS: AMYLASE 61 U/L (25-115); CREATINE KINASE 594 U/L (39-308)
[2017-07-13] MEDS: vasopressin inj. 60 UNIT in normal saline 100ml IV soln 97 ML IV SCH (20:23)
[2017-07-13 20:26] LABS: ABG BASE EXCESS -3.7 mmol/L (-2.0-3.0); ABG OXYGEN SATURATION 88.3 % (95-98); ABG PCO2 (T) 37.4 mmHg (35.0-48.0); ABG PH (T) 7.369 (7.350-7.450); ABG PO2 (T) 57.9 mmHg (83-108); FCOHb 0.3 % (0.5-1.5); FMetHb 0.4 % (0.3-1.12); FO2Hb 87.7 % (94-100); MINUTE VOLUME 13 L/min; PATIENT TEMPERATURE 37.5; PEEP 5 cm H2O; RESPIRATORY RATE 20 b/min; TOTAL HEMOGLOBIN 11.7 G/dl (14.0-18.0)
[2017-07-13 20:28] LABS: BASOPHILS % (AUTO) 0 % (0-1); EOSINOPHILS % (AUTO) 0 % (0-6); HEMATOCRIT 33.7 % (42.0-52.0); HEMOGLOBIN 11.4 g/dl (14.0-17.9); LYMPHOCYTES # (AUTO) 0.6 X10'3 (1.1-4.8); MEAN CORPUSCULAR HEMOGLOBIN 30.9 PG (27.0-31.0); MEAN CORPUSCULAR VOLUME 90.9 FL (78-98); MEAN PLATELET VOLUME 10.1 FL (7.4-10.4); MONOCYTES # (AUTO) 1.8 X10'3 (0-0.9); MONOCYTES % (AUTO) 3.3 % (2-12); NEUTROPHILS % (AUTO) 95.7 % (42-75); PLATELET COUNT 84 X10'3 (140-440); RED CELL DISTRIBUTION WIDTH 15.3 % (11.5-14.5)
[2017-07-13 20:30] LABS: OXYGEN SATURATION (MIXED VEN) 64.9 % (60-80); PO2 MIXED VENOUS (TEMP COR) 36.2 mmHg (35-46)
[2017-07-13 20:33] LABS: WHITE BLOOD COUNT 54.4 X10'3 (4.5-11.0)
[2017-07-13 20:38] LABS: ALANINE AMINOTRANSFERASE 466 U/L (12-78); ALBUMIN 1.3 G/DL (3.4-5.0); ALBUMIN/GLOBULIN RATIO 0.6 (1.1-1.5); ALKALINE PHOSPHATASE 64 IU/L (46-116); ANION GAP 9 (8-16); ASPARTATE AMINO TRANSFERASE 843 U/L (10-37); BILIRUBIN,TOTAL 1.7 MG/DL (0.1-1.0); BLOOD UREA NITROGEN 56 MG/DL (7-18); BUN/CREATININE RATIO 14.9 (5.4-32.0); CALCIUM 7.1 MG/DL (8.5-10.1); CHLORIDE 108 MMOL/L (99-107); CREATININE 3.77 MG/DL (0.60-1.10); GLUCOSE 164 MG/DL (70-104); PHOSPHORUS 5.3 MG/DL (2.3-4.5); POTASSIUM 5.5 MMOL/L (3.5-5.1); SODIUM 140 MMOL/L (135-145); TOTAL CARBON DIOXIDE 23.1 MMOL/L (24-32); TOTAL PROTEIN 3.5 G/DL (6.4-8.2); TROPONIN I 0.08 NG/ML (0.0-0.05); eGFR 16 ML/MIN
[2017-07-13] MEDS: Insulin Detemir pen SQ SCH (20:43)
[2017-07-13 20:59] LABS: D-DIMER 4.19 MG/L FEU (0-0.50); INR 1.2 INR; PARTIAL THROMBOPLASTIN TIME 37 SECONDS (22-32); PROTHROMBIN TIME 12.6 SECONDS (9.0-12.0)
[2017-07-13] MEDS: tamsulosin 0.4mg capsule PO SCH (21:00)
[2017-07-13 21:01] LABS: PLATELET COUNT 84 X10'3 (140-440)
[2017-07-13] MEDS ORDERED: vancomycin/NS 1 GM ADD-VANTAGE 250 ML IV ONE (21:55)
[2017-07-14] VITALS (24 sets, daily range): BP systolic 84–118; BP diastolic 42–58
[2017-07-14] MEDS: pantoprazole 40MG/NS 100ML BAG 100 ML IV SCH ×5 (02:05→20:02)
[2017-07-14] MEDS: sodium bicarbonate (8.4%) inj. 100 MEQ in dextrose 5%-water 1,000 ML IV SCH ×2 (02:05→13:28)
[2017-07-14] MEDS: methylPREDNISolone sod succ 125mg/2ml vial IV SCH (02:05)
[2017-07-14] MEDS: mineral oil/petrolatum ophthal oint EACHEYE SCH ×4 (02:05→20:02)
[2017-07-14 03:26] LABS: ABG BASE EXCESS -0.8 mmol/L (-2.0-3.0); ABG HCO3 23.1 mmol/L (22.0-26.0); ABG OXYGEN SATURATION 95.3 % (95-98); ABG PCO2 (T) 34.8 mmHg (35.0-48.0); ABG PH (T) 7.438 (7.350-7.450); ABG PO2 (T) 73.7 mmHg (83-108); FCOHb 0.3 % (0.5-1.5); FMetHb 0.2 % (0.3-1.12); FO2Hb 94.8 % (94-100); MINUTE VOLUME 14 L/min; PATIENT TEMPERATURE 36.7; PEEP 5 cm H2O; RESPIRATORY RATE 12 b/min; RESPIRATORY RATE (OBSERVED) 21 b/min
[2017-07-14 03:32] LABS: BASOPHILS % (AUTO) 0 % (0-1); EOSINOPHILS % (AUTO) 0 % (0-6); HEMOGLOBIN 10.7 g/dl (14.0-17.9); LYMPHOCYTES # (AUTO) 0.8 X10'3 (1.1-4.8); LYMPHOCYTES % (AUTO) 1.6 % (21-51); MEAN CORPUSCULAR HEMOGLOBIN 30.9 PG (27.0-31.0); MEAN CORPUSCULAR HGB CONC 33.4 % (33.0-36.5); MEAN CORPUSCULAR VOLUME 92.4 FL (78-98); MEAN PLATELET VOLUME 11.2 FL (7.4-10.4); MONOCYTES # (AUTO) 1.5 X10'3 (0-0.9); NEUTROPHILS # (AUTO) 47.1 X10'3 (1.8-7.7); NEUTROPHILS % (AUTO) 95.4 % (42-75); PLATELET COUNT 89 X10'3 (140-440); RED BLOOD COUNT 3.46 X10'6 (4.70-6.10); RED CELL DISTRIBUTION WIDTH 15.4 % (11.5-14.5)
[2017-07-14 03:36] LABS: WHITE BLOOD COUNT 49.4 X10'3 (4.5-11.0)
[2017-07-14 03:42] LABS: ALANINE AMINOTRANSFERASE 409 U/L (12-78); ALBUMIN 1.2 G/DL (3.4-5.0); ALBUMIN/GLOBULIN RATIO 0.5 (1.1-1.5); ALKALINE PHOSPHATASE 64 IU/L (46-116); ANION GAP 9 (8-16); ASPARTATE AMINO TRANSFERASE 594 U/L (10-37); BILIRUBIN,TOTAL 1.5 MG/DL (0.1-1.0); BLOOD UREA NITROGEN 63 MG/DL (7-18); BUN/CREATININE RATIO 15.6 (5.4-32.0); CALCIUM 6.8 MG/DL (8.5-10.1); CHLORIDE 107 MMOL/L (99-107); CREATININE 4.03 MG/DL (0.60-1.10); GLUCOSE 138 MG/DL (70-104); PHOSPHORUS 5.2 MG/DL (2.3-4.5); POTASSIUM 5.2 MMOL/L (3.5-5.1); SODIUM 141 MMOL/L (135-145); TOTAL CARBON DIOXIDE 24.7 MMOL/L (24-32); TOTAL PROTEIN 3.5 G/DL (6.4-8.2); eGFR 14 ML/MIN
[2017-07-14 03:52] LABS: D-DIMER 3.49 MG/L FEU (0-0.50); INR 1.2 INR; PARTIAL THROMBOPLASTIN TIME 37 SECONDS (22-32)
[2017-07-14 04:47] LABS: TOTAL CELLS COUNTED 100
[2017-07-14 04:49] LABS: PLATELET ESTIMATE DECREASED; POLYCHROMASIA FEW
[2017-07-14 04:50] LABS: BURR CELLS 1+; TARGET CELLS FEW
[2017-07-14 04:51] LABS: LARGE PLATELETS MODERATE
[2017-07-14 04:53] LABS: PLATELET COUNT 89 X10'3 (140-440)
[2017-07-14] MEDS ORDERED: furosemide 10 MG/1 ML 10ml inj IV ONE (07:20)
[2017-07-14] MEDS: ipratropium/albuterol 3ml nebule NEB PRN (07:27)
[2017-07-14 07:45] LABS: OXYGEN SATURATION (MIXED VEN) 79.3 % (60-80); PO2 MIXED VENOUS (TEMP COR) 43.5 mmHg (35-46)
[2017-07-14] MEDS ORDERED: vancomycin/NS 1 GM ADD-VANTAGE 250 ML IV PRN (07:50)
[2017-07-14] MEDS ORDERED: hydrocortisone sod succ/PF 100mg/2ml inj. IV SCH (08:00)
[2017-07-14] MEDS: predniSONE 5mg tablet PO SCH (08:00)
[2017-07-14] MEDS: diltiazem CD 180mg cap (once-daily) PO SCH (08:00)
[2017-07-14] MEDS: thiamine 100mg tablet PO SCH (08:00)
[2017-07-14] MEDS: folic acid 1mg tablet PO SCH (08:00)
[2017-07-14] MEDS: cefepime 2g/NS 100ml ADVANTAGE 100 ML IV SCH (08:36)
[2017-07-14] MEDS: metroNIDAZOLE-Flagyl 500mg/NS 100 ML IV SCH ×2 (08:37→20:02)
[2017-07-14] MEDS: FENTANYL-0.9 % NACL/PF 100 ML IV PRN ×2 (08:38→15:00)
[2017-07-14] MEDS: insulin Lispro (HumaLOG) vial - multi-dose SQ SCH ×3 (08:39→20:08)
[2017-07-14 12:01] LABS: ABG BASE EXCESS -1.3 mmol/L (-2.0-3.0); ABG HCO3 23.1 mmol/L (22.0-26.0); ABG OXYGEN SATURATION 92.4 % (95-98); ABG PCO2 (T) 37.2 mmHg (35.0-48.0); FCOHb 0.3 % (0.5-1.5); FMetHb 0.2 % (0.3-1.12); FO2Hb 91.9 % (94-100); MINUTE VOLUME 12 L/min; PEEP 8 cm H2O; RESPIRATORY RATE 18 b/min; RESPIRATORY RATE (OBSERVED) 19 b/min; TOTAL HEMOGLOBIN 10.3 G/dl (14.0-18.0)
[2017-07-14 12:07] LABS: PLATELET COUNT 84 X10'3 (140-440)
[2017-07-14 12:17] LABS: ALANINE AMINOTRANSFERASE 358 U/L (12-78); ALBUMIN 1.1 G/DL (3.4-5.0); ALBUMIN/GLOBULIN RATIO 0.5 (1.1-1.5); ALKALINE PHOSPHATASE 65 IU/L (46-116); ANION GAP 8 (8-16); ASPARTATE AMINO TRANSFERASE 421 U/L (10-37); BILIRUBIN,TOTAL 1.3 MG/DL (0.1-1.0); BLOOD UREA NITROGEN 67 MG/DL (7-18); BUN/CREATININE RATIO 16.7 (5.4-32.0); CHLORIDE 105 MMOL/L (99-107); CREATININE 4.02 MG/DL (0.60-1.10); GLUCOSE 150 MG/DL (70-104); MAGNESIUM 2.2 MG/DL (1.5-2.4); PHOSPHORUS 5.9 MG/DL (2.3-4.5); POTASSIUM 4.8 MMOL/L (3.5-5.1); SODIUM 138 MMOL/L (135-145); TOTAL CARBON DIOXIDE 25.3 MMOL/L (24-32); TOTAL PROTEIN 3.5 G/DL (6.4-8.2); eGFR 14 ML/MIN
[2017-07-14 12:34] LABS: D-DIMER 6.37 MG/L FEU (0-0.50)
[2017-07-14 12:35] LABS: INR 1.1 INR; PARTIAL THROMBOPLASTIN TIME 35 SECONDS (22-32); PROTHROMBIN TIME 11.8 SECONDS (9.0-12.0)
[2017-07-14] MEDS: NORepinephrine 8mg/ 250ml NS 250 ML IV PRN (12:44)
[2017-07-14] MEDS: midazolam 100mg in NS 100ml 100 ML IV PRN (12:44)
[2017-07-14] MEDS: normal saline 1000ml 1,000 ML IV SCH (12:46)
[2017-07-14] MEDS: hydrocortisone sod succ/PF 100mg/2ml inj. IV SCH ×2 (15:01→20:03)
[2017-07-14] MEDS: ipratropium/albuterol 3ml nebule NEB SCH ×4 (17:14→23:05)
[2017-07-14 19:55] LABS: BASOPHILS % (AUTO) 0 % (0-1); EOSINOPHILS % (AUTO) 0 % (0-6); HEMATOCRIT 30.1 % (42.0-52.0); HEMOGLOBIN 10.1 g/dl (14.0-17.9); LYMPHOCYTES # (AUTO) 0.5 X10'3 (1.1-4.8); LYMPHOCYTES % (AUTO) 1.2 % (21-51); MEAN CORPUSCULAR HEMOGLOBIN 30.6 PG (27.0-31.0); MEAN CORPUSCULAR HGB CONC 33.5 % (33.0-36.5); MEAN CORPUSCULAR VOLUME 91.5 FL (78-98); MEAN PLATELET VOLUME 11.1 FL (7.4-10.4); MONOCYTES # (AUTO) 1.6 X10'3 (0-0.9); MONOCYTES % (AUTO) 3.8 % (2-12); NEUTROPHILS # (AUTO) 39.7 X10'3 (1.8-7.7); PLATELET COUNT 83 X10'3 (140-440); RED BLOOD COUNT 3.29 X10'6 (4.70-6.10); RED CELL DISTRIBUTION WIDTH 15.6 % (11.5-14.5)
[2017-07-14] MEDS ORDERED: vancomycin/NS 1 GM ADD-VANTAGE 250 ML IV SCH (20:00)
[2017-07-14] MEDS: tamsulosin 0.4mg capsule PO SCH (20:04)
[2017-07-14] MEDS: Insulin Detemir pen SQ SCH (20:07)
[2017-07-14 20:10] LABS: ALANINE AMINOTRANSFERASE 356 U/L (12-78); ALBUMIN 1.2 G/DL (3.4-5.0); ALBUMIN/GLOBULIN RATIO 0.4 (1.1-1.5); ALKALINE PHOSPHATASE 65 IU/L (46-116); ANION GAP 11 (8-16); ASPARTATE AMINO TRANSFERASE 343 U/L (10-37); BILIRUBIN,TOTAL 1.1 MG/DL (0.1-1.0); BLOOD UREA NITROGEN 74 MG/DL (7-18); BUN/CREATININE RATIO 16.6 (5.4-32.0); CALCIUM 7.1 MG/DL (8.5-10.1); CHLORIDE 102 MMOL/L (99-107); CREATININE 4.45 MG/DL (0.60-1.10); GLUCOSE 159 MG/DL (70-104); PHOSPHORUS 6.3 MG/DL (2.3-4.5); POTASSIUM 4.8 MMOL/L (3.5-5.1); SODIUM 137 MMOL/L (135-145); TOTAL CARBON DIOXIDE 24.2 MMOL/L (24-32); TOTAL PROTEIN 3.9 G/DL (6.4-8.2); eGFR 13 ML/MIN
[2017-07-14 20:13] LABS: WHITE BLOOD COUNT 41.8 X10'3 (4.5-11.0)
[2017-07-14 20:23] LABS: D-DIMER 7.09 MG/L FEU (0-0.50); INR 1.1 INR; PARTIAL THROMBOPLASTIN TIME 32 SECONDS (22-32); PROTHROMBIN TIME 11.7 SECONDS (9.0-12.0)
[2017-07-14 20:38] LABS: PLATELET COUNT 83 X10'3 (140-440)
[2017-07-15] VITALS (24 sets, daily range): BP systolic 88–128; BP diastolic 46–70
[2017-07-15] MEDS: pantoprazole 40MG/NS 100ML BAG 100 ML IV SCH ×5 (02:02→20:07)
[2017-07-15] MEDS: hydrocortisone sod succ/PF 100mg/2ml inj. IV SCH ×4 (02:02→20:17)
[2017-07-15] MEDS: mineral oil/petrolatum ophthal oint EACHEYE SCH ×4 (02:03→20:17)
[2017-07-15] MEDS: FENTANYL-0.9 % NACL/PF 100 ML IV PRN ×2 (02:03→13:42)
[2017-07-15] MEDS: sodium bicarbonate (8.4%) inj. 100 MEQ in dextrose 5%-water 1,000 ML IV SCH ×3 (02:03→17:09)
[2017-07-15] MEDS: insulin Lispro (HumaLOG) vial - multi-dose SQ SCH ×2 (02:05→20:22)
[2017-07-15] MEDS: VANCOMYCIN LEVEL IV SCH (02:08)
[2017-07-15] MEDS: ipratropium/albuterol 3ml nebule NEB SCH ×6 (03:13→23:28)
[2017-07-15 03:47] LABS: BASOPHILS % (AUTO) 0 % (0-1); EOSINOPHILS % (AUTO) 0 % (0-6); HEMATOCRIT 28.7 % (42.0-52.0); HEMOGLOBIN 9.7 g/dl (14.0-17.9); LYMPHOCYTES # (AUTO) 0.5 X10'3 (1.1-4.8); LYMPHOCYTES % (AUTO) 1.3 % (21-51); MEAN CORPUSCULAR HEMOGLOBIN 30.8 PG (27.0-31.0); MEAN CORPUSCULAR HGB CONC 33.7 % (33.0-36.5); MEAN CORPUSCULAR VOLUME 91.4 FL (78-98); MEAN PLATELET VOLUME 10.4 FL (7.4-10.4); MONOCYTES # (AUTO) 1.8 X10'3 (0-0.9); MONOCYTES % (AUTO) 4.5 % (2-12); NEUTROPHILS # (AUTO) 37.1 X10'3 (1.8-7.7); NEUTROPHILS % (AUTO) 94.2 % (42-75); PLATELET COUNT 93 X10'3 (140-440); RED BLOOD COUNT 3.14 X10'6 (4.70-6.10); RED CELL DISTRIBUTION WIDTH 15.3 % (11.5-14.5)
[2017-07-15 04:01] LABS: ABG BASE EXCESS -2.8 mmol/L (-2.0-3.0); ABG HCO3 21.4 mmol/L (22.0-26.0); ABG OXYGEN SATURATION 94.2 % (95-98); ABG PCO2 (T) 33.6 mmHg (35.0-48.0); ABG PH (T) 7.418 (7.350-7.450); ABG PO2 (T) 72.1 mmHg (83-108); FCOHb 0.2 % (0.5-1.5); FMetHb 0.2 % (0.3-1.12); FO2Hb 93.8 % (94-100); PATIENT TEMPERATURE 36.2; PEEP 8 cm H2O; RESPIRATORY RATE 18 b/min; TOTAL HEMOGLOBIN 10.4 G/dl (14.0-18.0)
[2017-07-15 04:05] LABS: WHITE BLOOD COUNT 39.4 X10'3 (4.5-11.0)
[2017-07-15 04:07] LABS: ALANINE AMINOTRANSFERASE 282 U/L (12-78); ALBUMIN 1.2 G/DL (3.4-5.0); ALBUMIN/GLOBULIN RATIO 0.4 (1.1-1.5); ALKALINE PHOSPHATASE 72 IU/L (46-116); ANION GAP 7 (8-16); ASPARTATE AMINO TRANSFERASE 238 U/L (10-37); BILIRUBIN,TOTAL 1.1 MG/DL (0.1-1.0); BLOOD UREA NITROGEN 79 MG/DL (7-18); BUN/CREATININE RATIO 17.2 (5.4-32.0); CALCIUM 6.9 MG/DL (8.5-10.1); CHLORIDE 102 MMOL/L (99-107); CREATININE 4.59 MG/DL (0.60-1.10); GLUCOSE 153 MG/DL (70-104); PHOSPHORUS 6.8 MG/DL (2.3-4.5); POTASSIUM 4.7 MMOL/L (3.5-5.1); SODIUM 137 MMOL/L (135-145); TOTAL CARBON DIOXIDE 28.4 MMOL/L (24-32); TOTAL PROTEIN 3.9 G/DL (6.4-8.2); VANCOMYCIN,RANDOM 15.1 UG/ML; eGFR 12 ML/MIN
[2017-07-15 04:15] LABS: D-DIMER 7.15 MG/L FEU (0-0.50); INR 1.1 INR; PARTIAL THROMBOPLASTIN TIME 32 SECONDS (22-32); PROTHROMBIN TIME 11.3 SECONDS (9.0-12.0)
[2017-07-15 04:31] LABS: PLATELET COUNT 93 X10'3 (140-440)
[2017-07-15 07:10] LABS: TOTAL CELLS COUNTED 100
[2017-07-15 07:11] LABS: ANISOCYTOSIS 1+; PLATELET ESTIMATE DECREASED; POIKILOCYTOSIS 1+; POLYCHROMASIA 1+
[2017-07-15] MEDS: cefepime 2g/NS 100ml ADVANTAGE 100 ML IV SCH (07:44)
[2017-07-15] MEDS: metroNIDAZOLE-Flagyl 500mg/NS 100 ML IV SCH ×2 (07:44→20:17)
[2017-07-15] MEDS: diltiazem CD 180mg cap (once-daily) PO SCH (07:45)
[2017-07-15] MEDS: folic acid 1mg tablet PO SCH (07:45)
[2017-07-15] MEDS: thiamine 100mg tablet PO SCH (07:46)
[2017-07-15] MEDS: predniSONE 5mg tablet PO SCH (07:46)
[2017-07-15 10:36] LABS: OXYGEN SATURATION (MIXED VEN) 73.2 % (60-80)
[2017-07-15 10:53] LABS: BASOPHILS % (AUTO) 0 % (0-1); EOSINOPHILS # (AUTO) 0.2 X10'3 (0-0.9); EOSINOPHILS % (AUTO) 0.5 % (0-6); HEMATOCRIT 28.1 % (42.0-52.0); HEMOGLOBIN 9.5 g/dl (14.0-17.9); LYMPHOCYTES # (AUTO) 0.5 X10'3 (1.1-4.8); LYMPHOCYTES % (AUTO) 1.4 % (21-51); MEAN CORPUSCULAR HEMOGLOBIN 30.9 PG (27.0-31.0); MEAN CORPUSCULAR HGB CONC 33.6 % (33.0-36.5); MEAN CORPUSCULAR VOLUME 91.9 FL (78-98); MEAN PLATELET VOLUME 10.5 FL (7.4-10.4); MONOCYTES # (AUTO) 1.7 X10'3 (0-0.9); MONOCYTES % (AUTO) 4.3 % (2-12); NEUTROPHILS # (AUTO) 36.1 X10'3 (1.8-7.7); NEUTROPHILS % (AUTO) 93.8 % (42-75); PLATELET COUNT 92 X10'3 (140-440); RED BLOOD COUNT 3.06 X10'6 (4.70-6.10)
[2017-07-15 10:56] LABS: WHITE BLOOD COUNT 38.5 X10'3 (4.5-11.0)
[2017-07-15] MEDS ORDERED: heparin 1,000 units/ml 10ml inj HE ONE ×3 (11:00→15:55)
[2017-07-15 11:03] LABS: CREATININE,URINE RANDOM 98.1 MG/DL; SODIUM,URINE RANDOM < 15 MEQ/L
[2017-07-15 11:05] LABS: PLATELET COUNT 92 X10'3 (140-440)
[2017-07-15 11:07] LABS: ALANINE AMINOTRANSFERASE 252 U/L (12-78); ALBUMIN 1.2 G/DL (3.4-5.0); ALBUMIN/GLOBULIN RATIO 0.4 (1.1-1.5); ALKALINE PHOSPHATASE 72 IU/L (46-116); ANION GAP 6 (8-16); ASPARTATE AMINO TRANSFERASE 182 U/L (10-37); BILIRUBIN,TOTAL 1.1 MG/DL (0.1-1.0); BLOOD UREA NITROGEN 83 MG/DL (7-18); BUN/CREATININE RATIO 17.9 (5.4-32.0); CALCIUM 6.9 MG/DL (8.5-10.1); CHLORIDE 100 MMOL/L (99-107); CREATININE 4.63 MG/DL (0.60-1.10); GLUCOSE 140 MG/DL (70-104); MAGNESIUM 2.3 MG/DL (1.5-2.4); PHOSPHORUS 6.9 MG/DL (2.3-4.5); POTASSIUM 4.8 MMOL/L (3.5-5.1); SODIUM 136 MMOL/L (135-145); TOTAL CARBON DIOXIDE 29.6 MMOL/L (24-32); TOTAL PROTEIN 3.9 G/DL (6.4-8.2); eGFR 12 ML/MIN
[2017-07-15 11:14] LABS: D-DIMER 7.13 MG/L FEU (0-0.50); INR 1.1 INR; PARTIAL THROMBOPLASTIN TIME 31 SECONDS (22-32); PROTHROMBIN TIME 11.4 SECONDS (9.0-12.0)
[2017-07-15] MEDS ORDERED: normal saline 1000ml 100 ML IV PRN (12:56)
[2017-07-15] MEDS ORDERED: normal saline 1000ml 250 ML IV PRN (12:56)
[2017-07-15] MEDS ORDERED: albumin (human) 25% 100ml IV 100 ML IV PRN (13:00)
[2017-07-15] MEDS ORDERED: epoetin 20,000 units/ml inj IV ONE (13:00)
[2017-07-15] MEDS: midazolam 100mg in NS 100ml 100 ML IV PRN (17:10)
[2017-07-15 19:56] LABS: BASOPHILS % (AUTO) 0 % (0-1); EOSINOPHILS % (AUTO) 0.1 % (0-6); HEMATOCRIT 32.4 % (42.0-52.0); HEMOGLOBIN 10.9 g/dl (14.0-17.9); LYMPHOCYTES # (AUTO) 0.6 X10'3 (1.1-4.8); LYMPHOCYTES % (AUTO) 1.4 % (21-51); MEAN CORPUSCULAR HEMOGLOBIN 30.8 PG (27.0-31.0); MEAN CORPUSCULAR HGB CONC 33.6 % (33.0-36.5); MEAN CORPUSCULAR VOLUME 91.5 FL (78-98); MEAN PLATELET VOLUME 10.2 FL (7.4-10.4); MONOCYTES # (AUTO) 1.7 X10'3 (0-0.9); MONOCYTES % (AUTO) 4.2 % (2-12); NEUTROPHILS # (AUTO) 38.3 X10'3 (1.8-7.7); NEUTROPHILS % (AUTO) 94.3 % (42-75); PLATELET COUNT 101 X10'3 (140-440); RED BLOOD COUNT 3.54 X10'6 (4.70-6.10)
[2017-07-15 20:02] LABS: WHITE BLOOD COUNT 40.6 X10'3 (4.5-11.0)
[2017-07-15] MEDS: tamsulosin 0.4mg capsule PO SCH (20:07)
[2017-07-15 20:08] LABS: PLATELET COUNT 101 X10'3 (140-440)
[2017-07-15 20:11] LABS: ALANINE AMINOTRANSFERASE 264 U/L (12-78); ALBUMIN 2.3 G/DL (3.4-5.0); ALBUMIN/GLOBULIN RATIO 0.7 (1.1-1.5); ALKALINE PHOSPHATASE 104 IU/L (46-116); ANION GAP 7 (8-16); ASPARTATE AMINO TRANSFERASE 155 U/L (10-37); BILIRUBIN,TOTAL 1.6 MG/DL (0.1-1.0); BLOOD UREA NITROGEN 50 MG/DL (7-18); BUN/CREATININE RATIO 16.4 (5.4-32.0); CALCIUM 7.2 MG/DL (8.5-10.1); CHLORIDE 100 MMOL/L (99-107); CREATININE 3.05 MG/DL (0.60-1.10); GLUCOSE 170 MG/DL (70-104); MAGNESIUM 2.1 MG/DL (1.5-2.4); PHOSPHORUS 4.8 MG/DL (2.3-4.5); POTASSIUM 3.8 MMOL/L (3.5-5.1); SODIUM 136 MMOL/L (135-145); TOTAL PROTEIN 5.5 G/DL (6.4-8.2); eGFR 20 ML/MIN
[2017-07-15] MEDS: NORepinephrine 8mg/ 250ml NS 250 ML IV PRN (20:18)
[2017-07-15 20:20] LABS: D-DIMER 13.09 MG/L FEU (0-0.50); INR 1.1 INR; PARTIAL THROMBOPLASTIN TIME 30 SECONDS (22-32); PROTHROMBIN TIME 11.3 SECONDS (9.0-12.0)
[2017-07-15] MEDS: Insulin Detemir pen SQ SCH (20:21)
[2017-07-16] VITALS (24 sets, daily range): BP systolic 92–129; BP diastolic 50–63
[2017-07-16] MEDS: sodium bicarbonate (8.4%) inj. 100 MEQ in dextrose 5%-water 1,000 ML IV SCH (01:17)
[2017-07-16] MEDS: hydrocortisone sod succ/PF 100mg/2ml inj. IV SCH ×4 (02:40→20:45)
[2017-07-16] MEDS: pantoprazole 40MG/NS 100ML BAG 100 ML IV SCH ×2 (02:40→05:33)
[2017-07-16] MEDS: mineral oil/petrolatum ophthal oint EACHEYE SCH ×4 (02:41→20:44)
[2017-07-16] MEDS: VANCOMYCIN LEVEL IV SCH (02:41)
[2017-07-16] MEDS: insulin Lispro (HumaLOG) vial - multi-dose SQ SCH (02:44)
[2017-07-16 02:53] LABS: BASOPHILS % (AUTO) 0 % (0-1); EOSINOPHILS # (AUTO) 0.4 X10'3 (0-0.9); HEMATOCRIT 27.5 % (42.0-52.0); HEMOGLOBIN 9.2 g/dl (14.0-17.9); LYMPHOCYTES # (AUTO) 0.4 X10'3 (1.1-4.8); LYMPHOCYTES % (AUTO) 1.1 % (21-51); MEAN CORPUSCULAR HEMOGLOBIN 30.7 PG (27.0-31.0); MEAN CORPUSCULAR HGB CONC 33.4 % (33.0-36.5); MEAN PLATELET VOLUME 10.4 FL (7.4-10.4); MONOCYTES # (AUTO) 1.8 X10'3 (0-0.9); NEUTROPHILS # (AUTO) 32.8 X10'3 (1.8-7.7); NEUTROPHILS % (AUTO) 92.9 % (42-75); PLATELET COUNT 101 X10'3 (140-440); RED BLOOD COUNT 2.99 X10'6 (4.70-6.10)
[2017-07-16] MEDS: ipratropium/albuterol 3ml nebule NEB SCH ×6 (03:05→23:40)
[2017-07-16 03:09] LABS: WHITE BLOOD COUNT 35.4 X10'3 (4.5-11.0)
[2017-07-16 03:23] LABS: ALANINE AMINOTRANSFERASE 193 U/L (12-78); ALBUMIN 1.8 G/DL (3.4-5.0); ALBUMIN/GLOBULIN RATIO 0.7 (1.1-1.5); ALKALINE PHOSPHATASE 87 IU/L (46-116); ANION GAP 7 (8-16); ASPARTATE AMINO TRANSFERASE 100 U/L (10-37); BILIRUBIN,TOTAL 1.2 MG/DL (0.1-1.0); BLOOD UREA NITROGEN 62 MG/DL (7-18); BUN/CREATININE RATIO 17.1 (5.4-32.0); CHLORIDE 100 MMOL/L (99-107); CREATININE 3.62 MG/DL (0.60-1.10); GLUCOSE 140 MG/DL (70-104); POTASSIUM 4.3 MMOL/L (3.5-5.1); SODIUM 136 MMOL/L (135-145); TOTAL CARBON DIOXIDE 29.4 MMOL/L (24-32); TOTAL PROTEIN 4.4 G/DL (6.4-8.2); eGFR 16 ML/MIN
[2017-07-16 03:27] LABS: D-DIMER 9.62 MG/L FEU (0-0.50); INR 1.1 INR; PARTIAL THROMBOPLASTIN TIME 31 SECONDS (22-32); PROTHROMBIN TIME 11.7 SECONDS (9.0-12.0)
[2017-07-16 03:33] LABS: PLATELET COUNT 101 X10'3 (140-440)
[2017-07-16 04:10] LABS: ABG HCO3 27.3 mmol/L (22.0-26.0); ABG OXYGEN SATURATION 98.3 % (95-98); ABG PCO2 (T) 39.8 mmHg (35.0-48.0); ABG PH (T) 7.452 (7.350-7.450); ABG PO2 (T) 126.3 mmHg (83-108); FCOHb 0.3 % (0.5-1.5); MINUTE VOLUME 9 L/min; PATIENT TEMPERATURE 36.4; PEEP 10 cm H2O; RESPIRATORY RATE 18 b/min; RESPIRATORY RATE (OBSERVED) 18 b/min; TOTAL HEMOGLOBIN 9.9 G/dl (14.0-18.0)
[2017-07-16] MEDS: FENTANYL-0.9 % NACL/PF 100 ML IV PRN (04:48)
[2017-07-16 07:20] LABS: VANCOMYCIN,RANDOM 10.4 UG/ML
[2017-07-16 07:24] LABS: BANDS% (MANUAL) 1 % (0-10); METAMYLEOCYTES% (MANUAL) 1 % (0-0); MONOCYTES % (MANUAL) 4 % (2-12); NEUTROPHILS % (MANUAL) 94 % (42-75); NUCLEATED RED BLOOD CELLS 1 /100WBC (0-0); TOTAL CELLS COUNTED 100
[2017-07-16 07:25] LABS: ANISOCYTOSIS 1+; PLATELET ESTIMATE DECREASED
[2017-07-16] MEDS: predniSONE 5mg tablet PO SCH (08:00)
[2017-07-16] MEDS: folic acid 1mg tablet PO SCH (08:00)
[2017-07-16] MEDS: diltiazem CD 180mg cap (once-daily) PO SCH (08:00)
[2017-07-16] MEDS: thiamine 100mg tablet PO SCH (08:00)
[2017-07-16] MEDS: metroNIDAZOLE-Flagyl 500mg/NS 100 ML IV SCH ×2 (08:58→20:44)
[2017-07-16] MEDS ORDERED: vancomycin/NS 1 GM ADD-VANTAGE 250 ML IV ONE (09:00)
[2017-07-16] MEDS: cefepime 1GM/NS ADD-VANTAGE 100 ML IV SCH (10:16)
[2017-07-16] MEDS ORDERED: diatr meglu/diatrizoate 30ml oral sol.-(3 dose) bottle PO ONE (11:30)
[2017-07-16] MEDS: normal saline 1000ml 1,000 ML IV SCH (11:50)
[2017-07-16 15:09] LABS: MAGNESIUM 2.1 MG/DL (1.5-2.4)
[2017-07-16] MEDS ORDERED: insulin regular, human vial - multi-dose SQ SCH (15:57)
[2017-07-16 18:15] LABS: OXYGEN SATURATION (MIXED VEN) 66.3 % (60-80); PO2 MIXED VENOUS (TEMP COR) 31.9 mmHg (35-46)
[2017-07-16] MEDS ORDERED: pantoprazole 40 MG vial IV SCH (20:00)
[2017-07-16] MEDS: tamsulosin 0.4mg capsule PO SCH (20:45)
[2017-07-16] MEDS: Insulin Detemir pen SQ SCH (21:00)
[2017-07-17] VITALS (24 sets, daily range): BP systolic 106–129; BP diastolic 44–58
[2017-07-17] MEDS: FENTANYL-0.9 % NACL/PF 100 ML IV PRN (01:02)
[2017-07-17 02:02] LABS: BASOPHILS % (AUTO) 0 % (0-1); EOSINOPHILS % (AUTO) 0 % (0-6); HEMATOCRIT 27.2 % (42.0-52.0); HEMOGLOBIN 9.2 g/dl (14.0-17.9); LYMPHOCYTES # (AUTO) 0.4 X10'3 (1.1-4.8); LYMPHOCYTES % (AUTO) 1.1 % (21-51); MEAN CORPUSCULAR HEMOGLOBIN 30.8 PG (27.0-31.0); MEAN CORPUSCULAR HGB CONC 33.9 % (33.0-36.5); MEAN PLATELET VOLUME 10.2 FL (7.4-10.4); MONOCYTES # (AUTO) 1.9 X10'3 (0-0.9); MONOCYTES % (AUTO) 5.6 % (2-12); NEUTROPHILS # (AUTO) 32.2 X10'3 (1.8-7.7); NEUTROPHILS % (AUTO) 93.3 % (42-75); PLATELET COUNT 126 X10'3 (140-440); RED BLOOD COUNT 2.99 X10'6 (4.70-6.10); RED CELL DISTRIBUTION WIDTH 15.2 % (11.5-14.5)
[2017-07-17 02:09] LABS: WHITE BLOOD COUNT 34.5 X10'3 (4.5-11.0)
[2017-07-17] MEDS: mineral oil/petrolatum ophthal oint EACHEYE SCH ×4 (02:09→20:10)
[2017-07-17] MEDS: hydrocortisone sod succ/PF 100mg/2ml inj. IV SCH ×4 (02:09→20:11)
[2017-07-17 02:13] LABS: INR 1.2 INR; PARTIAL THROMBOPLASTIN TIME 29 SECONDS (22-32); PROTHROMBIN TIME 12.1 SECONDS (9.0-12.0)
[2017-07-17 02:23] LABS: ALANINE AMINOTRANSFERASE 140 U/L (12-78); ALBUMIN 1.6 G/DL (3.4-5.0); ALBUMIN/GLOBULIN RATIO 0.6 (1.1-1.5); ALKALINE PHOSPHATASE 87 IU/L (46-116); ANION GAP 6 (8-16); ASPARTATE AMINO TRANSFERASE 53 U/L (10-37); BILIRUBIN,TOTAL 1.1 MG/DL (0.1-1.0); BLOOD UREA NITROGEN 83 MG/DL (7-18); BUN/CREATININE RATIO 22.4 (5.4-32.0); CALCIUM 7.2 MG/DL (8.5-10.1); CHLORIDE 102 MMOL/L (99-107); CREATININE 3.71 MG/DL (0.60-1.10); GLUCOSE 104 MG/DL (70-104); MAGNESIUM 2.5 MG/DL (1.5-2.4); PHOSPHORUS 6.9 MG/DL (2.3-4.5); POTASSIUM 4.1 MMOL/L (3.5-5.1); PREALBUMIN 16.1 MG/DL (19-36); SODIUM 138 MMOL/L (135-145); TOTAL CARBON DIOXIDE 29.7 MMOL/L (24-32); TOTAL PROTEIN 4.1 G/DL (6.4-8.2); VANCOMYCIN,RANDOM 19.6 UG/ML; eGFR 16 ML/MIN
[2017-07-17 02:56] LABS: NUCLEATED RED BLOOD CELLS 1 /100WBC (0-0); TOTAL CELLS COUNTED 100
[2017-07-17 02:57] LABS: ANISOCYTOSIS 1+; PLATELET ESTIMATE DECREASED; TOXIC GRANULATION 1+
[2017-07-17] MEDS: VANCOMYCIN LEVEL IV SCH (03:00)
[2017-07-17] MEDS: ipratropium/albuterol 3ml nebule NEB SCH ×6 (03:07→23:12)
[2017-07-17 04:36] LABS: ABG BASE EXCESS 2.5 mmol/L (-2.0-3.0); ABG HCO3 26.4 mmol/L (22.0-26.0); ABG OXYGEN SATURATION 91.8 % (95-98); ABG PCO2 (T) 36.3 mmHg (35.0-48.0); ABG PH (T) 7.476 (7.350-7.450); ABG PO2 (T) 59.8 mmHg (83-108); FCOHb 0.3 % (0.5-1.5); FMetHb 0.1 % (0.3-1.12); FO2Hb 91.4 % (94-100); MINUTE VOLUME 9 L/min; PEEP 5 cm H2O; RESPIRATORY RATE 16 b/min; RESPIRATORY RATE (OBSERVED) 17 b/min; TOTAL HEMOGLOBIN 9.9 G/dl (14.0-18.0)
[2017-07-17 04:50] LABS: OXYGEN SATURATION (MIXED VEN) 74.3 % (60-80); PO2 MIXED VENOUS (TEMP COR) 36.9 mmHg (35-46)
[2017-07-17] MEDS ORDERED: heparin 1,000unit/ml 10ml vial 10 ML IV ONE (08:58)
[2017-07-17] MEDS ORDERED: albumin (human) 25% 100ml IV 100 ML IV PRN (09:00)
[2017-07-17] MEDS ORDERED: epoetin 20,000 units/ml inj IV ONE (09:00)
[2017-07-17] MEDS ORDERED: heparin 1,000 units/ml 10ml inj HE ONE ×2 (09:05)
[2017-07-17] MEDS: pantoprazole 40 MG vial IV SCH (09:16)
[2017-07-17] MEDS: cefepime 1GM/NS ADD-VANTAGE 100 ML IV SCH (09:17)
[2017-07-17] MEDS: metroNIDAZOLE-Flagyl 500mg/NS 100 ML IV SCH ×2 (09:19→20:11)
[2017-07-17] MEDS: folic acid 1mg tablet PO SCH (09:20)
[2017-07-17] MEDS: LACTOBACILLUS RHAMNOSUS GG 15 billion unit sprinkle caps PO SCH (09:20)
[2017-07-17] MEDS: predniSONE 5mg tablet PO SCH (09:20)
[2017-07-17] MEDS: thiamine 100mg tablet PO SCH (09:20)
[2017-07-17] MEDS ORDERED: dexmedetomidin/NS 400mcg/100ml 100 ML IV PRN (11:10)
[2017-07-17 17:12] LABS: BASOPHILS % (AUTO) 0 % (0-1); EOSINOPHILS % (AUTO) 0 % (0-6); HEMATOCRIT 29.4 % (42.0-52.0); HEMOGLOBIN 9.7 g/dl (14.0-17.9); LYMPHOCYTES # (AUTO) 0.4 X10'3 (1.1-4.8); LYMPHOCYTES % (AUTO) 1.3 % (21-51); MEAN CORPUSCULAR HEMOGLOBIN 30.5 PG (27.0-31.0); MEAN CORPUSCULAR VOLUME 92.5 FL (78-98); MONOCYTES # (AUTO) 1.9 X10'3 (0-0.9); MONOCYTES % (AUTO) 5.7 % (2-12); NEUTROPHILS # (AUTO) 30.4 X10'3 (1.8-7.7); PLATELET COUNT 151 X10'3 (140-440); RED BLOOD COUNT 3.18 X10'6 (4.70-6.10); RED CELL DISTRIBUTION WIDTH 15.6 % (11.5-14.5)
[2017-07-17 17:16] LABS: WHITE BLOOD COUNT 32.7 X10'3 (4.5-11.0)
[2017-07-17 18:06] LABS: NUCLEATED RED BLOOD CELLS 3 /100WBC (0-0); TOTAL CELLS COUNTED 100
[2017-07-17 18:07] LABS: ANISOCYTOSIS 1+; PLATELET ESTIMATE NORMAL
[2017-07-17 18:08] LABS: POLYCHROMASIA 1+; TOXIC GRANULATION 1+
[2017-07-17 18:09] LABS: SMUDGE CELLS 1+
[2017-07-17] MEDS: tamsulosin 0.4mg capsule PO SCH (20:11)
[2017-07-17] MEDS: ondansetron/PF 4mg/2ml inj IV PRN (20:15)
[2017-07-17] MEDS: normal saline 1000ml 1,000 ML IV SCH (20:41)
[2017-07-17] MEDS: Insulin Detemir pen SQ SCH (20:42)
[2017-07-18] VITALS (26 sets, daily range): BP systolic 60–158; BP diastolic 42–65
[2017-07-18 02:44] LABS: BASOPHILS % (AUTO) 0 % (0-1); EOSINOPHILS # (AUTO) 0.4 X10'3 (0-0.9); EOSINOPHILS % (AUTO) 1.2 % (0-6); HEMATOCRIT 33.4 % (42.0-52.0); HEMOGLOBIN 11.1 g/dl (14.0-17.9); LYMPHOCYTES # (AUTO) 0.5 X10'3 (1.1-4.8); LYMPHOCYTES % (AUTO) 1.6 % (21-51); MEAN CORPUSCULAR HEMOGLOBIN 30.4 PG (27.0-31.0); MEAN CORPUSCULAR HGB CONC 33.1 % (33.0-36.5); MEAN CORPUSCULAR VOLUME 91.9 FL (78-98); MEAN PLATELET VOLUME 9.9 FL (7.4-10.4); MONOCYTES # (AUTO) 2.3 X10'3 (0-0.9); NEUTROPHILS # (AUTO) 29.2 X10'3 (1.8-7.7); NEUTROPHILS % (AUTO) 90.2 % (42-75); PLATELET COUNT 195 X10'3 (140-440); RED BLOOD COUNT 3.64 X10'6 (4.70-6.10); RED CELL DISTRIBUTION WIDTH 15.4 % (11.5-14.5)
[2017-07-18] MEDS: hydrocortisone sod succ/PF 100mg/2ml inj. IV SCH ×3 (02:44→22:43)
[2017-07-18] MEDS: mineral oil/petrolatum ophthal oint EACHEYE SCH ×4 (02:44→22:45)
[2017-07-18] MEDS: FENTANYL-0.9 % NACL/PF 100 ML IV PRN (02:44)
[2017-07-18 02:49] LABS: WHITE BLOOD COUNT 32.4 X10'3 (4.5-11.0)
[2017-07-18 02:56] LABS: INR 1.2 INR; PARTIAL THROMBOPLASTIN TIME 27 SECONDS (22-32); PROTHROMBIN TIME 12.5 SECONDS (9.0-12.0)
[2017-07-18 02:59] LABS: ALANINE AMINOTRANSFERASE 87 U/L (12-78); ALBUMIN 1.9 G/DL (3.4-5.0); ALBUMIN/GLOBULIN RATIO 0.8 (1.1-1.5); ALKALINE PHOSPHATASE 109 IU/L (46-116); ANION GAP 6 (8-16); ASPARTATE AMINO TRANSFERASE 37 U/L (10-37); BILIRUBIN,TOTAL 1.3 MG/DL (0.1-1.0); BLOOD UREA NITROGEN 79 MG/DL (7-18); BUN/CREATININE RATIO 27.2 (5.4-32.0); CALCIUM 7.5 MG/DL (8.5-10.1); CHLORIDE 103 MMOL/L (99-107); GLUCOSE 134 MG/DL (70-104); MAGNESIUM 2.4 MG/DL (1.5-2.4); PHOSPHORUS 5.4 MG/DL (2.3-4.5); SODIUM 137 MMOL/L (135-145); TOTAL CARBON DIOXIDE 27.7 MMOL/L (24-32); TOTAL PROTEIN 4.3 G/DL (6.4-8.2); eGFR 21 ML/MIN
[2017-07-18] MEDS: ipratropium/albuterol 3ml nebule NEB SCH ×6 (03:19→22:45)
[2017-07-18 03:41] LABS: OXYGEN SATURATION (MIXED VEN) 58.9 % (60-80); PO2 MIXED VENOUS (TEMP COR) 29.9 mmHg (35-46)
[2017-07-18 03:45] LABS: ABG BASE EXCESS 1.1 mmol/L (-2.0-3.0); ABG HCO3 24.2 mmol/L (22.0-26.0); ABG OXYGEN SATURATION 93.6 % (95-98); ABG PCO2 (T) 32.4 mmHg (35.0-48.0); ABG PH (T) 7.488 (7.350-7.450); ABG PO2 (T) 64.6 mmHg (83-108); FCOHb 0.3 % (0.5-1.5); FMetHb 0.2 % (0.3-1.12); FO2Hb 93.1 % (94-100); MINUTE VOLUME 11 L/min; PATIENT TEMPERATURE 36.2; PEEP 5 cm H2O; RESPIRATORY RATE 14 b/min; TOTAL HEMOGLOBIN 12.1 G/dl (14.0-18.0)
[2017-07-18 03:58] LABS: NUCLEATED RED BLOOD CELLS 2 /100WBC (0-0); TOTAL CELLS COUNTED 100
[2017-07-18 03:59] LABS: ANISOCYTOSIS 1+; PLATELET ESTIMATE NORMAL; POLYCHROMASIA 1+; TOXIC GRANULATION 1+
[2017-07-18] MEDS: predniSONE 5mg tablet PO SCH (08:02)
[2017-07-18] MEDS: thiamine 100mg tablet PO SCH (08:03)
[2017-07-18] MEDS: folic acid 1mg tablet PO SCH (08:03)
[2017-07-18] MEDS: cefepime 1GM/NS ADD-VANTAGE 100 ML IV SCH (08:03)
[2017-07-18] MEDS: metroNIDAZOLE-Flagyl 500mg/NS 100 ML IV SCH ×2 (08:03→22:43)
[2017-07-18] MEDS: LACTOBACILLUS RHAMNOSUS GG 15 billion unit sprinkle caps PO SCH (08:03)
[2017-07-18] MEDS: pantoprazole 40 MG vial IV SCH (08:03)
[2017-07-18] MEDS ORDERED: metoclopramide 5 mg/ml inj IV SCH (14:00)
[2017-07-18 14:47] LABS: MAGNESIUM 2.6 MG/DL (1.5-2.4)
[2017-07-18 16:04] LABS: HEMATOCRIT 37.5 % (42.0-52.0); HEMOGLOBIN 12.3 g/dl (14.0-17.9); MEAN CORPUSCULAR HEMOGLOBIN 30.5 PG (27.0-31.0); MEAN CORPUSCULAR HGB CONC 32.9 % (33.0-36.5); MEAN CORPUSCULAR VOLUME 92.7 FL (78-98); MEAN PLATELET VOLUME 9.9 FL (7.4-10.4); PLATELET COUNT 246 X10'3 (140-440); RED BLOOD COUNT 4.04 X10'6 (4.70-6.10)
[2017-07-18 16:13] LABS: WHITE BLOOD COUNT 32.3 X10'3 (4.5-11.0)
[2017-07-18 17:15] LABS: ABG BASE EXCESS -6.7 mmol/L (-2.0-3.0); ABG HCO3 17.2 mmol/L (22.0-26.0); ABG OXYGEN SATURATION 89.6 % (95-98); ABG PCO2 (T) 31.2 mmHg (35.0-48.0); ABG PH (T) 7.363 (7.350-7.450); ABG PO2 (T) 67.7 mmHg (83-108); FCOHb 0.3 % (0.5-1.5); FMetHb 0.2 % (0.3-1.12); FO2Hb 89.2 % (94-100); PEEP 5 cm H2O; RESPIRATORY RATE 14 b/min; RESPIRATORY RATE (OBSERVED) 29 b/min; TIDAL VOLUME 490 mL
[2017-07-18] MEDS ORDERED: NORepinephrine 8mg/ 250ml NS 250 ML IV ONE (17:22)
[2017-07-18] MEDS ORDERED: normal saline 1000ml 1,000 ML IV ONE (17:25)
[2017-07-18 19:13] LABS: TROPONIN I < 0.04 NG/ML (0.0-0.05)
[2017-07-18 20:41] LABS: OXYGEN SATURATION (MIXED VEN) 48.6 % (60-80); PO2 MIXED VENOUS (TEMP COR) 29.1 mmHg (35-46)
[2017-07-18] MEDS: Insulin Detemir pen SQ SCH (21:00)
[2017-07-18] MEDS: tamsulosin 0.4mg capsule PO SCH (21:00)
[2017-07-18] MEDS ORDERED: albumin (Human) 5% 250ml 500 ML IV ONE (21:35)
[2017-07-18] MEDS ORDERED: VASOPRESSIN 60 UNITS in NS 100ml IV SCH (21:35)
[2017-07-18] MEDS ORDERED: albumin (Human) 5% 250 ML IV solution IV STA (21:40)
[2017-07-19] VITALS (24 sets, daily range): BP systolic 91–146; BP diastolic 38–70
[2017-07-19] MEDS ORDERED: normal saline 1000ml 1,000 ML IV ONE ×2
[2017-07-19] MEDS: NORepinephrine 8mg/ 250ml NS 250 ML IV SCH (01:53)
[2017-07-19] MEDS: ipratropium/albuterol 3ml nebule NEB SCH ×5 (02:49→22:38)
[2017-07-19 03:34] LABS: BASOPHILS % (AUTO) 0 % (0-1); EOSINOPHILS # (AUTO) 0.6 X10'3 (0-0.9); HEMATOCRIT 28.4 % (42.0-52.0); HEMOGLOBIN 9.4 g/dl (14.0-17.9); LYMPHOCYTES # (AUTO) 0.6 X10'3 (1.1-4.8); LYMPHOCYTES % (AUTO) 2.1 % (21-51); MEAN CORPUSCULAR HEMOGLOBIN 30.4 PG (27.0-31.0); MEAN CORPUSCULAR HGB CONC 32.9 % (33.0-36.5); MEAN CORPUSCULAR VOLUME 92.3 FL (78-98); MEAN PLATELET VOLUME 9.8 FL (7.4-10.4); MONOCYTES # (AUTO) 1.8 X10'3 (0-0.9); MONOCYTES % (AUTO) 5.8 % (2-12); NEUTROPHILS % (AUTO) 90.1 % (42-75); PLATELET COUNT 239 X10'3 (140-440); RED BLOOD COUNT 3.08 X10'6 (4.70-6.10); RED CELL DISTRIBUTION WIDTH 15.6 % (11.5-14.5)
[2017-07-19] MEDS: hydrocortisone sod succ/PF 100mg/2ml inj. IV SCH ×2 (03:35→19:52)
[2017-07-19] MEDS: mineral oil/petrolatum ophthal oint EACHEYE SCH ×4 (03:35→19:56)
[2017-07-19 03:45] LABS: ABG BASE EXCESS -5.4 mmol/L (-2.0-3.0); ABG HCO3 17.5 mmol/L (22.0-26.0); ABG OXYGEN SATURATION 86.7 % (95-98); ABG PCO2 (T) 26.5 mmHg (35.0-48.0); ABG PH (T) 7.439 (7.350-7.450); ABG PO2 (T) 52.8 mmHg (83-108); FCOHb 0.3 % (0.5-1.5); FO2Hb 86.4 % (94-100); MINUTE VOLUME 9 L/min; PATIENT TEMPERATURE 37.2; PEEP 5 cm H2O; RESPIRATORY RATE 14 b/min; RESPIRATORY RATE (OBSERVED) 25 b/min; TIDAL VOLUME 376 mL; TOTAL HEMOGLOBIN 10.2 G/dl (14.0-18.0)
[2017-07-19 03:47] LABS: INR 1.5 INR; PARTIAL THROMBOPLASTIN TIME 38 SECONDS (22-32); PROTHROMBIN TIME 14.9 SECONDS (9.0-12.0)
[2017-07-19 04:08] LABS: WHITE BLOOD COUNT 31.1 X10'3 (4.5-11.0)
[2017-07-19 04:10] LABS: ALANINE AMINOTRANSFERASE 47 U/L (12-78); ALBUMIN 2.4 G/DL (3.4-5.0); ALBUMIN/GLOBULIN RATIO 1.5 (1.1-1.5); ALKALINE PHOSPHATASE 83 IU/L (46-116); ANION GAP 12 (8-16); ASPARTATE AMINO TRANSFERASE 31 U/L (10-37); BILIRUBIN,TOTAL 1.9 MG/DL (0.1-1.0); BLOOD UREA NITROGEN 103 MG/DL (7-18); BUN/CREATININE RATIO 29.4 (5.4-32.0); CHLORIDE 108 MMOL/L (99-107); GLUCOSE 151 MG/DL (70-104); MAGNESIUM 2.2 MG/DL (1.5-2.4); PHOSPHORUS 6.9 MG/DL (2.3-4.5); POTASSIUM 4.6 MMOL/L (3.5-5.1); SODIUM 140 MMOL/L (135-145); TOTAL CARBON DIOXIDE 20.2 MMOL/L (24-32); eGFR 17 ML/MIN
[2017-07-19] MEDS: FENTANYL-0.9 % NACL/PF 100 ML IV PRN (04:23)
[2017-07-19] MEDS ORDERED: albumin (Human) 5% 250 ML IV solution IV STA (05:00)
[2017-07-19] MEDS ORDERED: albumin (Human) 5% 250ml 250 ML IV ONE (05:13)
[2017-07-19] MEDS: normal saline 1000ml 1,000 ML IV SCH (05:17)
[2017-07-19 07:18] LABS: ANISOCYTOSIS 1+; BANDS% (MANUAL) 1 % (0-10); METAMYLEOCYTES% (MANUAL) 2 % (0-0); MONOCYTES % (MANUAL) 7 % (2-12); MYELOCYTES % (MANUAL) 1 % (0-0); NEUTROPHILS % (MANUAL) 89 % (42-75); PLATELET ESTIMATE NORMAL; TOTAL CELLS COUNTED 100
[2017-07-19 07:19] LABS: POLYCHROMASIA 1+; TOXIC GRANULATION 1+
[2017-07-19] MEDS ORDERED: albumin (human) 25% 100ml IV 100 ML IV PRN (08:00)
[2017-07-19] MEDS ORDERED: heparin 1,000 units/ml 10ml inj HE ONE ×2 (08:00)
[2017-07-19] MEDS ORDERED: epoetin 20,000 units/ml inj IV ONE (08:00)
[2017-07-19] MEDS: pantoprazole 40 MG vial IV SCH (08:39)
[2017-07-19] MEDS: LACTOBACILLUS RHAMNOSUS GG 15 billion unit sprinkle caps PO SCH (08:39)
[2017-07-19] MEDS: folic acid 1mg tablet PO SCH (08:39)
[2017-07-19] MEDS: thiamine 100mg tablet PO SCH (08:39)
[2017-07-19] MEDS: predniSONE 5mg tablet PO SCH (08:39)
[2017-07-19] MEDS: metroNIDAZOLE-Flagyl 500mg/NS 100 ML IV SCH ×2 (08:40→19:52)
[2017-07-19] MEDS: cefepime 1GM/NS ADD-VANTAGE 100 ML IV SCH (08:40)
[2017-07-19 11:17] LABS: HBSAG SCREEN Negative (Negative)
[2017-07-19] MEDS ORDERED: amiodarone 150mg/dext, iso-os 100 ML IV ONE (13:05)
[2017-07-19] MEDS ORDERED: albumin (human) 25% 100ml IV 200 ML IV ONE (13:05)
[2017-07-19 13:10] LABS: ABG BASE EXCESS -3.2 mmol/L (-2.0-3.0); ABG HCO3 18.8 mmol/L (22.0-26.0); ABG OXYGEN SATURATION 92.6 % (95-98); ABG PCO2 (T) 25.1 mmHg (35.0-48.0); ABG PH (T) 7.493 (7.350-7.450); ABG PO2 (T) 65.6 mmHg (83-108); FCOHb 0.3 % (0.5-1.5); FMetHb 0.2 % (0.3-1.12); FO2Hb 92.1 % (94-100); MINUTE VOLUME 10 L/min; PATIENT TEMPERATURE 37.5; PEEP 8 cm H2O; RESPIRATORY RATE 14 b/min; RESPIRATORY RATE (OBSERVED) 25 b/min; TOTAL HEMOGLOBIN 10.2 G/dl (14.0-18.0)
[2017-07-19] MEDS: amiodarone/D5 450MG/250ML BAG 250 ML IV SCH ×2 (13:35→16:34)
[2017-07-19] MEDS ORDERED: hydrocortisone sod succ/PF 100mg/2ml inj. IV SCH (14:00)
[2017-07-19] MEDS ORDERED: Dextrose 10%-water IV solution 1,000 ML IV PRN (15:41)
[2017-07-19 19:13] LABS: PREALBUMIN 14.4 MG/DL (19-36); TRIGLYCERIDES 71 MG/DL (20-135)
[2017-07-19] MEDS: tamsulosin 0.4mg capsule PO SCH (19:54)
[2017-07-19] MEDS: Insulin Detemir pen SQ SCH (19:56)
[2017-07-19] MEDS: fat emulsion IV 100 ML, MVI, adult No.4 with vit. K 10 ML, Trace element-5 inj. 1 ML in... IV SCH ×4 (23:23)
[2017-07-20] VITALS (24 sets, daily range): BP systolic 80–144; BP diastolic 41–66
[2017-07-20] MEDS: FENTANYL-0.9 % NACL/PF 100 ML IV PRN ×2 (01:03→22:47)
[2017-07-20] MEDS: midazolam 100mg in NS 100ml 100 ML IV PRN (01:03)
[2017-07-20] MEDS: mineral oil/petrolatum ophthal oint EACHEYE SCH ×4 (02:28→20:43)
[2017-07-20] MEDS: normal saline 1000ml 1,000 ML IV SCH ×2 (02:29→07:42)
[2017-07-20] MEDS: ipratropium/albuterol 3ml nebule NEB SCH ×6 (02:37→22:41)
[2017-07-20 03:36] LABS: INR 1.6 INR; PARTIAL THROMBOPLASTIN TIME 41 SECONDS (22-32); PROTHROMBIN TIME 16.1 SECONDS (9.0-12.0)
[2017-07-20 03:44] LABS: ALANINE AMINOTRANSFERASE 30 U/L (12-78); ALBUMIN 2.4 G/DL (3.4-5.0); ALBUMIN/GLOBULIN RATIO 1.7 (1.1-1.5); ALKALINE PHOSPHATASE 58 IU/L (46-116); ANION GAP 11 (8-16); ASPARTATE AMINO TRANSFERASE 18 U/L (10-37); BLOOD UREA NITROGEN 81 MG/DL (7-18); BUN/CREATININE RATIO 31.2 (5.4-32.0); CHLORIDE 109 MMOL/L (99-107); GLUCOSE 170 MG/DL (70-104); MAGNESIUM 2.1 MG/DL (1.5-2.4); POTASSIUM 3.8 MMOL/L (3.5-5.1); PREALBUMIN 12.7 MG/DL (19-36); SODIUM 142 MMOL/L (135-145); TOTAL CARBON DIOXIDE 22.4 MMOL/L (24-32); TOTAL PROTEIN 3.8 G/DL (6.4-8.2); TRIGLYCERIDES 91 MG/DL (20-135); eGFR 24 ML/MIN
[2017-07-20 03:46] LABS: BASOPHILS % (AUTO) 0 % (0-1); EOSINOPHILS % (AUTO) 0.1 % (0-6); HEMATOCRIT 27.5 % (42.0-52.0); HEMOGLOBIN 9.5 g/dl (14.0-17.9); LYMPHOCYTES # (AUTO) 0.7 X10'3 (1.1-4.8); MEAN CORPUSCULAR HEMOGLOBIN 31.8 PG (27.0-31.0); MEAN CORPUSCULAR HGB CONC 34.4 % (33.0-36.5); MEAN CORPUSCULAR VOLUME 92.2 FL (78-98); MEAN PLATELET VOLUME 9.8 FL (7.4-10.4); MONOCYTES # (AUTO) 1.8 X10'3 (0-0.9); MONOCYTES % (AUTO) 5.2 % (2-12); NEUTROPHILS # (AUTO) 31.9 X10'3 (1.8-7.7); NEUTROPHILS % (AUTO) 92.7 % (42-75); PLATELET COUNT 282 X10'3 (140-440); RED BLOOD COUNT 2.98 X10'6 (4.70-6.10); RED CELL DISTRIBUTION WIDTH 15.4 % (11.5-14.5)
[2017-07-20 03:51] LABS: ABG BASE EXCESS -4.5 mmol/L (-2.0-3.0); ABG HCO3 19.4 mmol/L (22.0-26.0); ABG OXYGEN SATURATION 92.4 % (95-98); ABG PCO2 (T) 31.7 mmHg (35.0-48.0); ABG PH (T) 7.405 (7.350-7.450); ABG PO2 (T) 68.8 mmHg (83-108); FCOHb 0.3 % (0.5-1.5); FMetHb 0.3 % (0.3-1.12); FO2Hb 91.8 % (94-100); MINUTE VOLUME 7 L/min; PATIENT TEMPERATURE 37.1; PEEP 8 cm H2O; RESPIRATORY RATE 14 b/min; RESPIRATORY RATE (OBSERVED) 15 b/min; TIDAL VOLUME 469 mL; TOTAL HEMOGLOBIN 9.8 G/dl (14.0-18.0)
[2017-07-20 03:56] LABS: WHITE BLOOD COUNT 34.4 X10'3 (4.5-11.0)
[2017-07-20 05:30] LABS: PLATELET ESTIMATE NORMAL; TOTAL CELLS COUNTED 100
[2017-07-20 05:32] LABS: ANISOCYTOSIS 1+; POLYCHROMASIA 1+; TOXIC GRANULATION 1+
[2017-07-20 08:18] LABS: VANCOMYCIN,RANDOM 6.4 UG/ML
[2017-07-20] MEDS: thiamine 100mg tablet PO SCH (09:14)
[2017-07-20] MEDS: metroNIDAZOLE-Flagyl 500mg/NS 100 ML IV SCH ×2 (09:15→20:43)
[2017-07-20] MEDS: LACTOBACILLUS RHAMNOSUS GG 15 billion unit sprinkle caps PO SCH (09:15)
[2017-07-20] MEDS: folic acid 1mg tablet PO SCH (09:15)
[2017-07-20] MEDS: hydrocortisone sod succ/PF 100mg/2ml inj. IV SCH ×2 (09:15→20:43)
[2017-07-20] MEDS: pantoprazole 40 MG vial IV SCH (09:16)
[2017-07-20] MEDS: cefepime 1GM/NS ADD-VANTAGE 100 ML IV SCH (09:17)
[2017-07-20] MEDS: fluconazole-Diflucan 200mg/NS 100 ML IV SCH (09:41)
[2017-07-20] MEDS ORDERED: vancomycin/NS 1 GM ADD-VANTAGE 250 ML IV ONE (10:40)
[2017-07-20 14:10] LABS: ABG BASE EXCESS -6.3 mmol/L (-2.0-3.0); ABG HCO3 17.3 mmol/L (22.0-26.0); ABG OXYGEN SATURATION 96.3 % (95-98); ABG PCO2 (T) 28.1 mmHg (35.0-48.0); ABG PH (T) 7.408 (7.350-7.450); FCOHb 0.3 % (0.5-1.5); FLOW 30 L/min; FMetHb 0.2 % (0.3-1.12); FO2Hb 95.8 % (94-100); PATIENT TEMPERATURE 37.1; PEEP 5 cm H2O; RESPIRATORY RATE 14 b/min; TIDAL VOLUME 500 mL
[2017-07-20] MEDS: fat emulsion IV 100 ML, MVI, adult No.4 with vit. K 10 ML, Trace element-5 inj. 1 ML in... IV SCH ×4 (17:11)
[2017-07-20] MEDS: midodrine 5mg tablet PO SCH ×2 (17:11→23:57)
[2017-07-20] MEDS: NORepinephrine 8mg/ 250ml NS 250 ML IV SCH (17:15)
[2017-07-20] MEDS: tamsulosin 0.4mg capsule PO SCH ×2 (20:43→20:47)
[2017-07-20] MEDS: amiodarone 200mg tablet PO SCH (20:43)
[2017-07-20] MEDS: insulin regular, human vial - multi-dose SQ SCH (21:42)
[2017-07-20] MEDS: Insulin Detemir pen SQ SCH (21:43)
[2017-07-21] VITALS (24 sets, daily range): BP systolic 72–139; BP diastolic 34–57
[2017-07-21] MEDS: mineral oil/petrolatum ophthal oint EACHEYE SCH ×4 (02:35→20:16)
[2017-07-21] MEDS: ipratropium/albuterol 3ml nebule NEB SCH ×6 (02:42→22:32)
[2017-07-21] MEDS: insulin regular, human vial - multi-dose SQ SCH ×4 (02:47→21:28)
[2017-07-21 03:25] LABS: ABG BASE EXCESS -8.1 mmol/L (-2.0-3.0); ABG OXYGEN SATURATION 95.9 % (95-98); ABG PCO2 (T) 30.1 mmHg (35.0-48.0); ABG PH (T) 7.349 (7.350-7.450); ABG PO2 (T) 92.8 mmHg (83-108); FCOHb 0.3 % (0.5-1.5); FMetHb 0.3 % (0.3-1.12); FO2Hb 95.3 % (94-100); MINUTE VOLUME 12 L/min; PATIENT TEMPERATURE 38.5; PEEP 5 cm H2O; RESPIRATORY RATE 14 b/min; RESPIRATORY RATE (OBSERVED) 24 b/min; TIDAL VOLUME 500 mL; TOTAL HEMOGLOBIN 10.9 G/dl (14.0-18.0)
[2017-07-21 04:28] LABS: BASOPHILS % (AUTO) 0 % (0-1); EOSINOPHILS # (AUTO) 0.9 X10'3 (0-0.9); EOSINOPHILS % (AUTO) 1.8 % (0-6); HEMATOCRIT 31.3 % (42.0-52.0); HEMOGLOBIN 10.1 g/dl (14.0-17.9); LYMPHOCYTES # (AUTO) 0.7 X10'3 (1.1-4.8); LYMPHOCYTES % (AUTO) 1.3 % (21-51); MEAN CORPUSCULAR HEMOGLOBIN 30.7 PG (27.0-31.0); MEAN CORPUSCULAR HGB CONC 32.2 % (33.0-36.5); MEAN CORPUSCULAR VOLUME 95.2 FL (78-98); MEAN PLATELET VOLUME 9.3 FL (7.4-10.4); MONOCYTES # (AUTO) 2.6 X10'3 (0-0.9); MONOCYTES % (AUTO) 4.9 % (2-12); NEUTROPHILS # (AUTO) 48.1 X10'3 (1.8-7.7); PLATELET COUNT 258 X10'3 (140-440); RED BLOOD COUNT 3.28 X10'6 (4.70-6.10); RED CELL DISTRIBUTION WIDTH 16.2 % (11.5-14.5)
[2017-07-21 04:31] LABS: WHITE BLOOD COUNT 52.3 X10'3 (4.5-11.0)
[2017-07-21 04:40] LABS: INR 1.4 INR; PARTIAL THROMBOPLASTIN TIME 37 SECONDS (22-32); PROTHROMBIN TIME 14.3 SECONDS (9.0-12.0)
[2017-07-21 04:54] LABS: ALANINE AMINOTRANSFERASE 28 U/L (12-78); ALBUMIN 1.6 G/DL (3.4-5.0); ALBUMIN/GLOBULIN RATIO 0.8 (1.1-1.5); ALKALINE PHOSPHATASE 59 IU/L (46-116); ANION GAP 12 (8-16); ASPARTATE AMINO TRANSFERASE 27 U/L (10-37); BLOOD UREA NITROGEN 91 MG/DL (7-18); BUN/CREATININE RATIO 26.8 (5.4-32.0); CALCIUM 7.1 MG/DL (8.5-10.1); CHLORIDE 109 MMOL/L (99-107); GLUCOSE 273 MG/DL (70-104); PHOSPHORUS 6.7 MG/DL (2.3-4.5); POTASSIUM 4.6 MMOL/L (3.5-5.1); SODIUM 140 MMOL/L (135-145); TOTAL PROTEIN 3.6 G/DL (6.4-8.2); eGFR 18 ML/MIN
[2017-07-21 05:47] LABS: ANISOCYTOSIS 1+; PLATELET ESTIMATE NORMAL; TOTAL CELLS COUNTED 100
[2017-07-21 05:48] LABS: POLYCHROMASIA 1+; TOXIC GRANULATION 1+
[2017-07-21] MEDS: LACTOBACILLUS RHAMNOSUS GG 15 billion unit sprinkle caps PO SCH (07:28)
[2017-07-21] MEDS: amiodarone 200mg tablet PO SCH ×2 (07:28→20:16)
[2017-07-21] MEDS: midodrine 5mg tablet PO SCH ×2 (07:28→16:20)
[2017-07-21] MEDS: folic acid 1mg tablet PO SCH (07:28)
[2017-07-21] MEDS: thiamine 100mg tablet PO SCH (07:28)
[2017-07-21] MEDS: hydrocortisone sod succ/PF 100mg/2ml inj. IV SCH ×2 (07:29→20:16)
[2017-07-21] MEDS: pantoprazole 40 MG vial IV SCH (07:29)
[2017-07-21] MEDS: metroNIDAZOLE-Flagyl 500mg/NS 100 ML IV SCH ×2 (07:29→20:16)
[2017-07-21] MEDS: cefepime 1GM/NS ADD-VANTAGE 100 ML IV SCH (07:29)
[2017-07-21] MEDS: fluconazole-Diflucan 200mg/NS 100 ML IV SCH (07:29)
[2017-07-21] MEDS: NORepinephrine 8mg/ 250ml NS 250 ML IV SCH ×3 (07:37→20:21)
[2017-07-21] MEDS ORDERED: vancomycin/NS 1 GM ADD-VANTAGE 250 ML IV PRN (10:25)
[2017-07-21] MEDS ORDERED: heparin 1,000unit/ml 10ml vial 10 ML IV ONE (10:32)
[2017-07-21] MEDS ORDERED: heparin 1,000 units/ml 10ml inj IV ONE (10:35)
[2017-07-21] MEDS ORDERED: heparin 1,000 units/ml 10ml inj HE ONE ×2 (10:40)
[2017-07-21] MEDS: diatr meglu/diatrizoate 30ml oral sol.-(3 dose) bottle PO SCH ×3 (11:24→17:23)
[2017-07-21] MEDS ORDERED: diatr meglu/diatrizoate 30ml oral sol.-(3 dose) bottle PO SCH (12:00)
[2017-07-21] MEDS: albumin (human) 25% 100ml IV 100 ML IV PRN ×3 (13:06→13:52)
[2017-07-21] MEDS ORDERED: vasopressin inj. 60 UNIT in normal saline 100ml IV soln 97 ML IV SCH (14:20)
[2017-07-21] MEDS: FENTANYL-0.9 % NACL/PF 100 ML IV PRN (15:25)
[2017-07-21] MEDS: tamsulosin 0.4mg capsule PO SCH (20:17)
[2017-07-21] MEDS ORDERED: metoclopramide 5 mg/ml inj IV PRN (20:40)
[2017-07-21] MEDS: Insulin Detemir pen SQ SCH (21:38)
[2017-07-22] VITALS (25 sets, daily range): BP systolic 99–138; BP diastolic 44–56
[2017-07-22] MEDS: midodrine 5mg tablet PO SCH ×4 (00:57→23:57)
[2017-07-22] MEDS: hydrocortisone sod succ/PF 100mg/2ml inj. IV SCH ×4 (01:21→19:50)
[2017-07-22] MEDS: mineral oil/petrolatum ophthal oint EACHEYE SCH ×4 (01:21→19:50)
[2017-07-22] MEDS: metoclopramide 5 mg/ml inj IV SCH ×4 (01:21→19:49)
[2017-07-22] MEDS: ipratropium/albuterol 3ml nebule NEB SCH ×6 (02:31→22:25)
[2017-07-22] MEDS: insulin regular, human vial - multi-dose SQ SCH ×4 (02:33→20:11)
[2017-07-22] MEDS: VANCOMYCIN LEVEL IV SCH (02:36)
[2017-07-22 02:43] LABS: BASOPHILS % (AUTO) 0 % (0-1); EOSINOPHILS % (AUTO) 1.7 % (0-6); HEMATOCRIT 24.5 % (42.0-52.0); HEMOGLOBIN 7.9 g/dl (14.0-17.9); LYMPHOCYTES # (AUTO) 0.6 X10'3 (1.1-4.8); LYMPHOCYTES % (AUTO) 1.1 % (21-51); MEAN CORPUSCULAR HEMOGLOBIN 30.7 PG (27.0-31.0); MEAN CORPUSCULAR HGB CONC 32.3 % (33.0-36.5); MEAN PLATELET VOLUME 9.9 FL (7.4-10.4); MONOCYTES # (AUTO) 2.6 X10'3 (0-0.9); MONOCYTES % (AUTO) 4.6 % (2-12); NEUTROPHILS # (AUTO) 53.2 X10'3 (1.8-7.7); NEUTROPHILS % (AUTO) 92.6 % (42-75); PLATELET COUNT 192 X10'3 (140-440); RED BLOOD COUNT 2.58 X10'6 (4.70-6.10); RED CELL DISTRIBUTION WIDTH 16.8 % (11.5-14.5)
[2017-07-22 02:49] LABS: WHITE BLOOD COUNT 57.4 X10'3 (4.5-11.0)
[2017-07-22 02:53] LABS: INR 1.9 INR; PARTIAL THROMBOPLASTIN TIME 58 SECONDS (22-32); PROTHROMBIN TIME 19.6 SECONDS (9.0-12.0)
[2017-07-22 03:09] LABS: ALANINE AMINOTRANSFERASE 210 U/L (12-78); ALBUMIN 2.3 G/DL (3.4-5.0); ALBUMIN/GLOBULIN RATIO 1.6 (1.1-1.5); ALKALINE PHOSPHATASE 51 IU/L (46-116); ANION GAP 8 (8-16); ASPARTATE AMINO TRANSFERASE 347 U/L (10-37); BILIRUBIN,TOTAL 1.6 MG/DL (0.1-1.0); BLOOD UREA NITROGEN 76 MG/DL (7-18); BUN/CREATININE RATIO 24.5 (5.4-32.0); CHLORIDE 107 MMOL/L (99-107); GLUCOSE 204 MG/DL (70-104); MAGNESIUM 1.9 MG/DL (1.5-2.4); PHOSPHORUS 5.8 MG/DL (2.3-4.5); POTASSIUM 4.3 MMOL/L (3.5-5.1); SODIUM 139 MMOL/L (135-145); TOTAL PROTEIN 3.7 G/DL (6.4-8.2); VANCOMYCIN,RANDOM 20.4 UG/ML; eGFR 20 ML/MIN
[2017-07-22 03:50] LABS: ABG BASE EXCESS -5.4 mmol/L (-2.0-3.0); ABG HCO3 18.4 mmol/L (22.0-26.0); ABG OXYGEN SATURATION 90.1 % (95-98); ABG PCO2 (T) 29.8 mmHg (35.0-48.0); ABG PO2 (T) 60.4 mmHg (83-108); ALLEN'S TEST Positive; FCOHb 0.3 % (0.5-1.5); FMetHb 0.4 % (0.3-1.12); FO2Hb 89.5 % (94-100); MINUTE VOLUME 10 L/min; PATIENT TEMPERATURE 37.3; PEEP 5 cm H2O; RESPIRATORY RATE 14 b/min; RESPIRATORY RATE (OBSERVED) 21 b/min; TIDAL VOLUME 500 mL; TOTAL HEMOGLOBIN 8.6 G/dl (14.0-18.0)
[2017-07-22] MEDS: predniSONE 5mg tablet PO SCH (07:00)
[2017-07-22] MEDS: NORepinephrine 8mg/ 250ml NS 250 ML IV SCH (07:33)
[2017-07-22] MEDS: LACTOBACILLUS RHAMNOSUS GG 15 billion unit sprinkle caps PO SCH (08:34)
[2017-07-22] MEDS: cefepime 1GM/NS ADD-VANTAGE 100 ML IV SCH (08:35)
[2017-07-22] MEDS: pantoprazole 40 MG vial IV SCH (08:36)
[2017-07-22] MEDS: amiodarone 200mg tablet PO SCH ×2 (08:40→19:50)
[2017-07-22] MEDS: folic acid 1mg tablet PO SCH (08:41)
[2017-07-22] MEDS: thiamine 100mg tablet PO SCH (08:41)
[2017-07-22] MEDS: metroNIDAZOLE-Flagyl 500mg/NS 100 ML IV SCH ×2 (09:39→19:50)
[2017-07-22] MEDS: fluconazole-Diflucan 200mg/NS 100 ML IV SCH (10:47)
[2017-07-22] MEDS: FENTANYL-0.9 % NACL/PF 100 ML IV PRN (12:29)
[2017-07-22] MEDS: midazolam 100mg in NS 100ml 100 ML IV PRN (12:30)
[2017-07-22] MEDS: fat emulsion IV 100 ML, MVI, adult No.4 with vit. K 10 ML, Trace element-5 inj. 1 ML in... IV SCH ×4 (19:49)
[2017-07-22] MEDS: tamsulosin 0.4mg capsule PO SCH (20:59)
[2017-07-22] MEDS: Insulin Detemir pen SQ SCH (21:13)
[2017-07-23] VITALS (22 sets, daily range): BP systolic 85–151; BP diastolic 46–88
[2017-07-23 00:11] LABS: ABG HCO3 17.9 mmol/L (22.0-26.0); ABG OXYGEN SATURATION 94.5 % (95-98); ABG PCO2 (T) 30.1 mmHg (35.0-48.0); ABG PH (T) 7.393 (7.350-7.450); ABG PO2 (T) 75.7 mmHg (83-108); ALLEN'S TEST Positive; FCOHb 0.3 % (0.5-1.5); FMetHb 0.3 % (0.3-1.12); FO2Hb 93.9 % (94-100); MINUTE VOLUME 17 L/min; PATIENT TEMPERATURE 37.4; PEEP 5 cm H2O; RESPIRATORY RATE 14 b/min; RESPIRATORY RATE (OBSERVED) 32 b/min; TIDAL VOLUME 500 mL; TOTAL HEMOGLOBIN 9.7 G/dl (14.0-18.0)
[2017-07-23] MEDS: metoclopramide 5 mg/ml inj IV SCH ×4 (01:42→20:22)
[2017-07-23] MEDS: hydrocortisone sod succ/PF 100mg/2ml inj. IV SCH ×3 (01:42→23:19)
[2017-07-23 01:44] LABS: INR 1.7 INR; PARTIAL THROMBOPLASTIN TIME 48 SECONDS (22-32); PROTHROMBIN TIME 17.4 SECONDS (9.0-12.0)
[2017-07-23] MEDS: insulin regular, human vial - multi-dose SQ SCH ×4 (01:46→20:29)
[2017-07-23 01:47] LABS: ALANINE AMINOTRANSFERASE 500 U/L (12-78); ALBUMIN 1.8 G/DL (3.4-5.0); ALBUMIN/GLOBULIN RATIO 0.9 (1.1-1.5); ALKALINE PHOSPHATASE 105 IU/L (46-116); ANION GAP 10 (8-16); ASPARTATE AMINO TRANSFERASE 541 U/L (10-37); BILIRUBIN,TOTAL 1.3 MG/DL (0.1-1.0); BLOOD UREA NITROGEN 95 MG/DL (7-18); BUN/CREATININE RATIO 25.7 (5.4-32.0); CALCIUM 7.4 MG/DL (8.5-10.1); CHLORIDE 106 MMOL/L (99-107); GLUCOSE 184 MG/DL (70-104); PHOSPHORUS 7.4 MG/DL (2.3-4.5); POTASSIUM 5.2 MMOL/L (3.5-5.1); PREALBUMIN 10.4 MG/DL (19-36); SODIUM 136 MMOL/L (135-145); TOTAL CARBON DIOXIDE 19.9 MMOL/L (24-32); TOTAL PROTEIN 3.8 G/DL (6.4-8.2); TRIGLYCERIDES 59 MG/DL (20-135); VANCOMYCIN,RANDOM 15.9 UG/ML; eGFR 16 ML/MIN
[2017-07-23] MEDS: VANCOMYCIN LEVEL IV SCH (02:04)
[2017-07-23] MEDS: mineral oil/petrolatum ophthal oint EACHEYE SCH ×4 (02:04→19:49)
[2017-07-23 02:08] LABS: BASOPHILS % (AUTO) 0 % (0-1); EOSINOPHILS # (AUTO) 1.4 X10'3 (0-0.9); HEMATOCRIT 28.9 % (42.0-52.0); HEMOGLOBIN 9.4 g/dl (14.0-17.9); LYMPHOCYTES # (AUTO) 0.6 X10'3 (1.1-4.8); LYMPHOCYTES % (AUTO) 0.8 % (21-51); MEAN CORPUSCULAR HGB CONC 32.4 % (33.0-36.5); MEAN CORPUSCULAR VOLUME 95.8 FL (78-98); MEAN PLATELET VOLUME 9.7 FL (7.4-10.4); MONOCYTES # (AUTO) 3.4 X10'3 (0-0.9); MONOCYTES % (AUTO) 4.6 % (2-12); NEUTROPHILS # (AUTO) 67.7 X10'3 (1.8-7.7); NEUTROPHILS % (AUTO) 92.6 % (42-75); PLATELET COUNT 250 X10'3 (140-440); RED BLOOD COUNT 3.02 X10'6 (4.70-6.10); RED CELL DISTRIBUTION WIDTH 17.4 % (11.5-14.5)
[2017-07-23 02:11] LABS: WHITE BLOOD COUNT 73.1 X10'3 (4.5-11.0)
[2017-07-23] MEDS ORDERED: albumin (human) 25% 100 ML IV solution IV ONE (02:15)
[2017-07-23] MEDS: ipratropium/albuterol 3ml nebule NEB SCH ×6 (02:21→22:23)
[2017-07-23] MEDS: NORepinephrine 8mg/ 250ml NS 250 ML IV SCH ×2 (02:46→23:20)
[2017-07-23 03:39] LABS: ANISOCYTOSIS 1+; PLATELET ESTIMATE NORMAL; TOTAL CELLS COUNTED 100
[2017-07-23 03:40] LABS: POLYCHROMASIA FEW
[2017-07-23 04:15] LABS: ABG BASE EXCESS -8.7 mmol/L (-2.0-3.0); ABG HCO3 14.6 mmol/L (22.0-26.0); ABG OXYGEN SATURATION 89.9 % (95-98); ABG PCO2 (T) 23.9 mmHg (35.0-48.0); ABG PH (T) 7.406 (7.350-7.450); ABG PO2 (T) 61.1 mmHg (83-108); ALLEN'S TEST Positive; FCOHb 0.3 % (0.5-1.5); FMetHb 0.4 % (0.3-1.12); FO2Hb 89.3 % (94-100); MINUTE VOLUME 14 L/min; PATIENT TEMPERATURE 37.5; PEEP 5 cm H2O; RESPIRATORY RATE 14 b/min; RESPIRATORY RATE (OBSERVED) 32 b/min; TIDAL VOLUME 431 mL
[2017-07-23] MEDS: FENTANYL-0.9 % NACL/PF 100 ML IV PRN (04:29)
[2017-07-23] MEDS ORDERED: linezolid 600mg/300ml PREMIX 300 ML IV SCH (08:00)
[2017-07-23] MEDS ORDERED: hydrocortisone sod succ/PF 100mg/2ml inj. IV SCH (08:00)
[2017-07-23] MEDS ORDERED: magnesium 4gm in 100ml NS 100 ML IV PRN (08:35)
[2017-07-23] MEDS ORDERED: potassium Cl 20mEq/100mL bag 100 ML IV PRN (08:35)
[2017-07-23] MEDS ORDERED: sodium phosphate inj. 30 MMOL in normal saline 250ml IV soln 250 ML IV PRN (08:35)
[2017-07-23] MEDS: LACTOBACILLUS RHAMNOSUS GG 15 billion unit sprinkle caps PO SCH (09:30)
[2017-07-23] MEDS: cefepime 1GM/NS ADD-VANTAGE 100 ML IV SCH (09:30)
[2017-07-23] MEDS: pantoprazole 40 MG vial IV SCH (09:33)
[2017-07-23] MEDS: folic acid 1mg tablet PO SCH (09:33)
[2017-07-23] MEDS: thiamine 100mg tablet PO SCH (09:34)
[2017-07-23] MEDS: midodrine 5mg tablet PO SCH ×3 (09:34→23:19)
[2017-07-23] MEDS: amiodarone 200mg tablet PO SCH ×2 (09:36→19:51)
[2017-07-23] MEDS: midazolam 100mg in NS 100ml 100 ML IV PRN (10:04)
[2017-07-23] MEDS: metroNIDAZOLE-Flagyl 500mg/NS 100 ML IV SCH ×2 (10:06→19:50)
[2017-07-23] MEDS: Duosol 4k/NO Calcium 5,000 ML HE SCH ×3 (11:02→15:20)
[2017-07-23] MEDS: fluconazole-Diflucan 200mg/NS 100 ML IV SCH (11:15)
[2017-07-23] MEDS: citrate dextrose 1000ml IV sol 1,000 ML IV PRN ×4 (11:23→21:47)
[2017-07-23] MEDS: calcium chloride inj. 10,000 MG in normal saline 500ml IV soln 400 ML IV PRN (11:23)
[2017-07-23] MEDS ORDERED: fat emulsion IV 100 ML, MVI, adult No.4 with vit. K 10 ML, Trace element-5 inj. 1 ML in... IV SCH ×4 (11:27)
[2017-07-23] MEDS: albumin (human) 25% 100 ML IV solution IV SCH ×2 (16:18→19:50)
[2017-07-23 16:29] LABS: BASOPHILS % (AUTO) 0 % (0-1); EOSINOPHILS % (AUTO) 1.1 % (0-6); HEMATOCRIT 26.2 % (42.0-52.0); HEMOGLOBIN 8.4 g/dl (14.0-17.9); LYMPHOCYTES # (AUTO) 1.1 X10'3 (1.1-4.8); LYMPHOCYTES % (AUTO) 1.3 % (21-51); MEAN CORPUSCULAR HEMOGLOBIN 31.1 PG (27.0-31.0); MEAN CORPUSCULAR HGB CONC 31.9 % (33.0-36.5); MEAN CORPUSCULAR VOLUME 97.5 FL (78-98); MEAN PLATELET VOLUME 9.1 FL (7.4-10.4); MONOCYTES # (AUTO) 2.1 X10'3 (0-0.9); MONOCYTES % (AUTO) 2.4 % (2-12); NEUTROPHILS # (AUTO) 83.5 X10'3 (1.8-7.7); NEUTROPHILS % (AUTO) 95.2 % (42-75); PLATELET COUNT 192 X10'3 (140-440); RED BLOOD COUNT 2.69 X10'6 (4.70-6.10)
[2017-07-23 16:36] LABS: ALBUMIN 1.8 G/DL (3.4-5.0); ANION GAP 18 (8-16); BLOOD UREA NITROGEN 79 MG/DL (7-18); BUN/CREATININE RATIO 23.9 (5.4-32.0); CHLORIDE 104 MMOL/L (99-107); GLUCOSE 283 MG/DL (70-104); MAGNESIUM 2.2 MG/DL (1.5-2.4); POTASSIUM 5.8 MMOL/L (3.5-5.1); SODIUM 136 MMOL/L (135-145); eGFR 18 ML/MIN
[2017-07-23 16:40] LABS: TOTAL CARBON DIOXIDE 14.5 MMOL/L (24-32)
[2017-07-23 16:45] LABS: WHITE BLOOD COUNT 87.7 X10'3 (4.5-11.0)
[2017-07-23] MEDS: calcium chloride inj. 1,000 MG in normal saline 100ml IV soln 100 ML IV PRN ×2 (18:03→23:02)
[2017-07-23] MEDS: Duosol 4k/NO Calcium 5,000 ML HE PRN ×3 (18:45→22:11)
[2017-07-23] MEDS: chlorhexidine gluconate 15ml Cup****oral rinse MM SCH (19:08)
[2017-07-23] MEDS: tamsulosin 0.4mg capsule PO SCH (19:09)
[2017-07-23] MEDS: nystatin 15 GM powder TP SCH (19:50)
[2017-07-23] MEDS: Insulin Detemir pen SQ SCH (20:30)
[2017-07-23] MEDS: linezolid 600mg/300ml PREMIX 300 ML IV SCH (21:48)
[2017-07-23 22:12] LABS: BASOPHILS % (AUTO) 0 % (0-1); EOSINOPHILS # (AUTO) 2.1 X10'3 (0-0.9); EOSINOPHILS % (AUTO) 2.4 % (0-6); LYMPHOCYTES # (AUTO) 0.9 X10'3 (1.1-4.8); LYMPHOCYTES % (AUTO) 1.1 % (21-51); MEAN CORPUSCULAR HEMOGLOBIN 31.1 PG (27.0-31.0); MEAN CORPUSCULAR HGB CONC 31.8 % (33.0-36.5); MEAN CORPUSCULAR VOLUME 97.9 FL (78-98); MEAN PLATELET VOLUME 8.8 FL (7.4-10.4); MONOCYTES # (AUTO) 2.4 X10'3 (0-0.9); MONOCYTES % (AUTO) 2.8 % (2-12); NEUTROPHILS # (AUTO) 80.2 X10'3 (1.8-7.7); NEUTROPHILS % (AUTO) 93.7 % (42-75); PLATELET COUNT 169 X10'3 (140-440); RED BLOOD COUNT 2.21 X10'6 (4.70-6.10); RED CELL DISTRIBUTION WIDTH 18.4 % (11.5-14.5)
[2017-07-23 22:26] LABS: ALBUMIN 2.6 G/DL (3.4-5.0); ANION GAP 18 (8-16); BLOOD UREA NITROGEN 60 MG/DL (7-18); BUN/CREATININE RATIO 21.4 (5.4-32.0); CHLORIDE 102 MMOL/L (99-107); GLUCOSE 303 MG/DL (70-104); HEMOGLOBIN 6.9 g/dl (14.0-17.9); PHOSPHORUS 5.6 MG/DL (2.3-4.5); POTASSIUM 4.8 MMOL/L (3.5-5.1); SODIUM 136 MMOL/L (135-145); TOTAL CARBON DIOXIDE 16.2 MMOL/L (24-32); WHITE BLOOD COUNT 85.6 X10'3 (4.5-11.0); eGFR 22 ML/MIN
[2017-07-23 22:27] LABS: HEMATOCRIT 21.6 % (42.0-52.0)
[2017-07-23] MEDS ORDERED: calcium chloride 100 MG/1 ML inj IV ONE (22:58)
[2017-07-24] VITALS (30 sets, daily range): BP systolic 86–147; BP diastolic 40–70
[2017-07-24] MEDS ORDERED: diltiazem 5mg/ml 5ml inj. IV ONE (00:30)
[2017-07-24] MEDS: mineral oil/petrolatum ophthal oint EACHEYE SCH ×4 (01:01→19:55)
[2017-07-24] MEDS: midazolam 100mg in NS 100ml 100 ML IV PRN (01:02)
[2017-07-24] MEDS: FENTANYL-0.9 % NACL/PF 100 ML IV PRN (01:02)
[2017-07-24] MEDS: Duosol 4k/NO Calcium 5,000 ML HE PRN ×5 (01:26→11:30)
[2017-07-24] MEDS: citrate dextrose 1000ml IV sol 1,000 ML IV PRN ×3 (01:26→07:32)
[2017-07-24] MEDS: albumin (human) 25% 100 ML IV solution IV SCH ×4 (02:05→20:07)
[2017-07-24] MEDS: metoclopramide 5 mg/ml inj IV SCH ×4 (02:05→19:56)
[2017-07-24] MEDS: insulin regular, human vial - multi-dose SQ SCH ×4 (02:18→20:22)
[2017-07-24] MEDS: ipratropium/albuterol 3ml nebule NEB SCH ×6 (02:21→23:15)
[2017-07-24 03:45] LABS: ABG BASE EXCESS -9.9 mmol/L (-2.0-3.0); ABG HCO3 15.8 mmol/L (22.0-26.0); ABG OXYGEN SATURATION 97.6 % (95-98); ABG PCO2 (T) 33.4 mmHg (35.0-48.0); ABG PH (T) 7.291 (7.350-7.450); ABG PO2 (T) 101.9 mmHg (83-108); ALLEN'S TEST Positive; FCOHb 0.3 % (0.5-1.5); FMetHb 0.4 % (0.3-1.12); FO2Hb 96.9 % (94-100); MINUTE VOLUME 13 L/min; PATIENT TEMPERATURE 36.5; PEEP 8 cm H2O; RESPIRATORY RATE 14 b/min; RESPIRATORY RATE (OBSERVED) 19 b/min; TIDAL VOLUME 606 mL; TOTAL HEMOGLOBIN 9.4 G/dl (14.0-18.0)
[2017-07-24] MEDS: calcium chloride inj. 10,000 MG in normal saline 500ml IV soln 400 ML IV PRN (03:51)
[2017-07-24 04:07] LABS: BASOPHILS % (AUTO) 0 % (0-1); EOSINOPHILS # (AUTO) 1.8 X10'3 (0-0.9); EOSINOPHILS % (AUTO) 2.4 % (0-6); HEMATOCRIT 26.7 % (42.0-52.0); HEMOGLOBIN 8.7 g/dl (14.0-17.9); LYMPHOCYTES # (AUTO) 0.7 X10'3 (1.1-4.8); MEAN CORPUSCULAR HEMOGLOBIN 31.2 PG (27.0-31.0); MEAN CORPUSCULAR HGB CONC 32.7 % (33.0-36.5); MEAN CORPUSCULAR VOLUME 95.5 FL (78-98); MEAN PLATELET VOLUME 8.5 FL (7.4-10.4); MONOCYTES # (AUTO) 2.7 X10'3 (0-0.9); MONOCYTES % (AUTO) 3.6 % (2-12); NEUTROPHILS # (AUTO) 69.3 X10'3 (1.8-7.7); PLATELET COUNT 139 X10'3 (140-440); RED CELL DISTRIBUTION WIDTH 17.1 % (11.5-14.5)
[2017-07-24 04:16] LABS: ALBUMIN/GLOBULIN RATIO 2.3 (1.1-1.5); ALKALINE PHOSPHATASE 85 IU/L (46-116); ANION GAP 15 (8-16); BILIRUBIN,TOTAL 4.1 MG/DL (0.1-1.0); BLOOD UREA NITROGEN 50 MG/DL (7-18); CALCIUM 9.1 MG/DL (8.5-10.1); CHLORIDE 103 MMOL/L (99-107); GLUCOSE 229 MG/DL (70-104); MAGNESIUM 1.9 MG/DL (1.5-2.4); PHOSPHORUS 5.1 MG/DL (2.3-4.5); POTASSIUM 4.9 MMOL/L (3.5-5.1); SODIUM 137 MMOL/L (135-145); TOTAL CARBON DIOXIDE 18.7 MMOL/L (24-32); TOTAL PROTEIN 4.3 G/DL (6.4-8.2); VANCOMYCIN,RANDOM 8.7 UG/ML; eGFR 25 ML/MIN
[2017-07-24 04:18] LABS: INR 3.1 INR; PROTHROMBIN TIME 30.8 SECONDS (9.0-12.0)
[2017-07-24 04:21] LABS: WHITE BLOOD COUNT 74.5 X10'3 (4.5-11.0)
[2017-07-24 04:22] LABS: ALANINE AMINOTRANSFERASE 1043 U/L (12-78)
[2017-07-24] MEDS ORDERED: calcium chloride 100 MG/1 ML inj IV ONE ×3 (04:31→22:42)
[2017-07-24 04:33] LABS: PARTIAL THROMBOPLASTIN TIME 95 SECONDS (22-32)
[2017-07-24] MEDS: calcium chloride inj. 1,000 MG in normal saline 100ml IV soln 100 ML IV PRN ×2 (04:38→12:31)
[2017-07-24 04:39] LABS: NUCLEATED RED BLOOD CELLS 3 /100WBC (0-0); TOTAL CELLS COUNTED 100
[2017-07-24 04:42] LABS: ANISOCYTOSIS 1+; GIANT PLATELET FEW; LARGE PLATELETS FEW; PLATELET ESTIMATE DECREASED; POLYCHROMASIA 1+
[2017-07-24 04:43] LABS: TOXIC GRANULATION 2+
[2017-07-24 05:10] LABS: ASPARTATE AMINO TRANSFERASE 2761 U/L (10-37)
[2017-07-24] MEDS ORDERED: amiodarone/D5 450MG/250ML BAG 250 ML IV SCH (06:50)
[2017-07-24] MEDS: LACTOBACILLUS RHAMNOSUS GG 15 billion unit sprinkle caps PO SCH (08:04)
[2017-07-24] MEDS: nystatin 15 GM powder TP SCH ×2 (08:04→19:55)
[2017-07-24] MEDS: thiamine 100mg tablet PO SCH (08:04)
[2017-07-24] MEDS: folic acid 1mg tablet PO SCH (08:04)
[2017-07-24] MEDS: pantoprazole 40 MG vial IV SCH (08:05)
[2017-07-24] MEDS: hydrocortisone sod succ/PF 100mg/2ml inj. IV SCH ×3 (08:05→23:49)
[2017-07-24] MEDS: fluconazole-Diflucan 200mg/NS 100 ML IV SCH (08:08)
[2017-07-24] MEDS: metroNIDAZOLE-Flagyl 500mg/NS 100 ML IV SCH ×2 (08:09→20:07)
[2017-07-24] MEDS: chlorhexidine gluconate 15ml Cup****oral rinse MM SCH ×2 (08:09→20:00)
[2017-07-24] MEDS: [UNRECOGNIZED DRUG - REMARK] IV SCH ×8 (08:09→19:57)
[2017-07-24] MEDS: cefepime 1GM/NS ADD-VANTAGE 100 ML IV SCH (08:09)
[2017-07-24 09:07] LABS: INR 3.2 INR; PROTHROMBIN TIME 32.2 SECONDS (9.0-12.0)
[2017-07-24 09:09] LABS: PARTIAL THROMBOPLASTIN TIME 87 SECONDS (22-32)
[2017-07-24] MEDS: midodrine 5mg tablet PO SCH ×3 (09:20→23:49)
[2017-07-24 11:27] LABS: BASOPHILS % (AUTO) 0 % (0-1); EOSINOPHILS % (AUTO) 0 % (0-6); HEMOGLOBIN 10.1 g/dl (14.0-17.9); LYMPHOCYTES # (AUTO) 0.3 X10'3 (1.1-4.8); LYMPHOCYTES % (AUTO) 0.4 % (21-51); MEAN CORPUSCULAR VOLUME 94.1 FL (78-98); MEAN PLATELET VOLUME 9.7 FL (7.4-10.4); MONOCYTES # (AUTO) 3.6 X10'3 (0-0.9); MONOCYTES % (AUTO) 5.5 % (2-12); NEUTROPHILS % (AUTO) 94.1 % (42-75); PLATELET COUNT 132 X10'3 (140-440); RED BLOOD COUNT 3.08 X10'6 (4.70-6.10)
[2017-07-24] MEDS: linezolid 600mg/300ml PREMIX 300 ML IV SCH ×2 (11:28→22:11)
[2017-07-24 11:32] LABS: ANION GAP 11 (8-16); BLOOD UREA NITROGEN 40 MG/DL (7-18); CHLORIDE 104 MMOL/L (99-107); GLUCOSE 240 MG/DL (70-104); MAGNESIUM 1.7 MG/DL (1.5-2.4); POTASSIUM 4.4 MMOL/L (3.5-5.1); SODIUM 137 MMOL/L (135-145); TOTAL CARBON DIOXIDE 21.7 MMOL/L (24-32); eGFR 32 ML/MIN
[2017-07-24 11:33] LABS: PHOSPHORUS 4.5 MG/DL (2.3-4.5)
[2017-07-24 11:38] LABS: WHITE BLOOD COUNT 65.9 X10'3 (4.5-11.0)
[2017-07-24] MEDS: SODIUM BICARBONATE IV SCH ×2 (11:43→18:16)
[2017-07-24] MEDS: SODIUM CHLORIDE 0.45% IV SCH ×2 (11:43→18:16)
[2017-07-24 14:55] LABS: BASOPHILS # (AUTO) 0.1 X10'3 (0-0.2); BASOPHILS % (AUTO) 0.2 % (0-1); EOSINOPHILS % (AUTO) 0 % (0-6); HEMOGLOBIN 10.2 g/dl (14.0-17.9); LYMPHOCYTES # (AUTO) 0.5 X10'3 (1.1-4.8); LYMPHOCYTES % (AUTO) 0.7 % (21-51); MEAN CORPUSCULAR HGB CONC 35.1 % (33.0-36.5); MEAN CORPUSCULAR VOLUME 93.9 FL (78-98); MEAN PLATELET VOLUME 9.7 FL (7.4-10.4); MONOCYTES % (AUTO) 5.7 % (2-12); NEUTROPHILS # (AUTO) 65.6 X10'3 (1.8-7.7); NEUTROPHILS % (AUTO) 93.4 % (42-75); PLATELET COUNT 125 X10'3 (140-440); RED BLOOD COUNT 3.09 X10'6 (4.70-6.10); RED CELL DISTRIBUTION WIDTH 15.7 % (11.5-14.5)
[2017-07-24 14:58] LABS: ALBUMIN 2.9 G/DL (3.4-5.0); ANION GAP 11 (8-16); BLOOD UREA NITROGEN 38 MG/DL (7-18); CHLORIDE 103 MMOL/L (99-107); GLUCOSE 233 MG/DL (70-104); MAGNESIUM 1.7 MG/DL (1.5-2.4); POTASSIUM 4.4 MMOL/L (3.5-5.1); SODIUM 135 MMOL/L (135-145); TOTAL CARBON DIOXIDE 20.7 MMOL/L (24-32); eGFR 34 ML/MIN
[2017-07-24 14:59] LABS: PHOSPHORUS 4.6 MG/DL (2.3-4.5)
[2017-07-24 15:06] LABS: INR 3.6 INR; PROTHROMBIN TIME 35.5 SECONDS (9.0-12.0)
[2017-07-24 15:07] LABS: WHITE BLOOD COUNT 70.2 X10'3 (4.5-11.0)
[2017-07-24] MEDS: amiodarone/D5 360MG/200ML BAG 250 ML IV SCH (15:11)
[2017-07-24 15:17] LABS: PARTIAL THROMBOPLASTIN TIME 93 SECONDS (22-32)
[2017-07-24 16:12] LABS: ALBUMIN 2.9 G/DL (3.4-5.0); ALKALINE PHOSPHATASE 283 IU/L (46-116); ANION GAP 11 (8-16); BILIRUBIN,TOTAL 6.5 MG/DL (0.1-1.0); BLOOD UREA NITROGEN 39 MG/DL (7-18); BUN/CREATININE RATIO 19.5 (5.4-32.0); CALCIUM 8.2 MG/DL (8.5-10.1); CHLORIDE 103 MMOL/L (99-107); GLUCOSE 258 MG/DL (70-104); POTASSIUM 4.4 MMOL/L (3.5-5.1); SODIUM 135 MMOL/L (135-145); TOTAL CARBON DIOXIDE 20.7 MMOL/L (24-32); eGFR 32 ML/MIN
[2017-07-24 16:13] LABS: ALANINE AMINOTRANSFERASE 2879 U/L (12-78); ALBUMIN/GLOBULIN RATIO 2.4 (1.1-1.5); TOTAL PROTEIN 4.1 G/DL (6.4-8.2)
[2017-07-24 16:24] LABS: ASPARTATE AMINO TRANSFERASE > 7000 U/L (10-37)
[2017-07-24] MEDS: tamsulosin 0.4mg capsule PO SCH (19:55)
[2017-07-24] MEDS: Insulin Detemir pen SQ SCH (20:23)
[2017-07-24 22:13] LABS: BASOPHILS % (AUTO) 0 % (0-1); EOSINOPHILS # (AUTO) 1.1 X10'3 (0-0.9); EOSINOPHILS % (AUTO) 1.9 % (0-6); HEMATOCRIT 26.7 % (42.0-52.0); LYMPHOCYTES # (AUTO) 0.3 X10'3 (1.1-4.8); LYMPHOCYTES % (AUTO) 0.6 % (21-51); MEAN CORPUSCULAR HEMOGLOBIN 31.6 PG (27.0-31.0); MEAN CORPUSCULAR HGB CONC 33.7 % (33.0-36.5); MEAN CORPUSCULAR VOLUME 93.8 FL (78-98); MEAN PLATELET VOLUME 9.1 FL (7.4-10.4); MONOCYTES # (AUTO) 2.9 X10'3 (0-0.9); MONOCYTES % (AUTO) 4.9 % (2-12); NEUTROPHILS # (AUTO) 56.1 X10'3 (1.8-7.7); NEUTROPHILS % (AUTO) 92.6 % (42-75); PLATELET COUNT 103 X10'3 (140-440); RED BLOOD COUNT 2.85 X10'6 (4.70-6.10)
[2017-07-24 22:14] LABS: WHITE BLOOD COUNT 60.5 X10'3 (4.5-11.0)
[2017-07-24 22:23] LABS: ALBUMIN 3.4 G/DL (3.4-5.0); ANION GAP 12 (8-16); BLOOD UREA NITROGEN 33 MG/DL (7-18); BUN/CREATININE RATIO 18.3 (5.4-32.0); CHLORIDE 103 MMOL/L (99-107); GLUCOSE 206 MG/DL (70-104); MAGNESIUM 1.7 MG/DL (1.5-2.4); POTASSIUM 4.4 MMOL/L (3.5-5.1); SODIUM 136 MMOL/L (135-145); TOTAL CARBON DIOXIDE 20.6 MMOL/L (24-32); eGFR 37 ML/MIN
[2017-07-24 22:36] LABS: PHOSPHORUS 4.2 MG/DL (2.3-4.5)
[2017-07-25] VITALS (12 sets, daily range): BP systolic 98–127; BP diastolic 42–52
[2017-07-25] MEDS: SODIUM BICARBONATE IV SCH ×2 (00:56→08:25)
[2017-07-25] MEDS: SODIUM CHLORIDE 0.45% IV SCH ×2 (00:56→08:25)
[2017-07-25] MEDS: mineral oil/petrolatum ophthal oint EACHEYE SCH ×2 (02:04→08:25)
[2017-07-25] MEDS: metoclopramide 5 mg/ml inj IV SCH (02:04)
[2017-07-25] MEDS: albumin (human) 25% 100 ML IV solution IV SCH ×2 (02:04→08:50)
[2017-07-25] MEDS: Duosol 4k/NO Calcium 5,000 ML HE PRN ×3 (02:07→09:05)
[2017-07-25] MEDS: insulin regular, human vial - multi-dose SQ SCH ×2 (02:18→08:36)
[2017-07-25] MEDS: amiodarone/D5 360MG/200ML BAG 250 ML IV SCH (02:44)
[2017-07-25] MEDS: ipratropium/albuterol 3ml nebule NEB SCH ×2 (02:56→08:02)
[2017-07-25 04:21] LABS: ABG HCO3 16.5 mmol/L (22.0-26.0); ABG OXYGEN SATURATION 96.4 % (95-98); ABG PCO2 (T) 29.6 mmHg (35.0-48.0); ABG PH (T) 7.362 (7.350-7.450); ALLEN'S TEST Positive; FCOHb 0.3 % (0.5-1.5); FMetHb 0.3 % (0.3-1.12); FO2Hb 95.8 % (94-100); MINUTE VOLUME 12 L/min; PATIENT TEMPERATURE 36.4; PEEP 8 cm H2O; RESPIRATORY RATE 14 b/min; RESPIRATORY RATE (OBSERVED) 22 b/min; TOTAL HEMOGLOBIN 9.6 G/dl (14.0-18.0)
[2017-07-25 04:21] LABS: BASOPHILS # (AUTO) 0.3 X10'3 (0-0.2); BASOPHILS % (AUTO) 0.6 % (0-1); EOSINOPHILS # (AUTO) 0.4 X10'3 (0-0.9); EOSINOPHILS % (AUTO) 0.7 % (0-6); HEMATOCRIT 26.8 % (42.0-52.0); HEMOGLOBIN 9.1 g/dl (14.0-17.9); LYMPHOCYTES # (AUTO) 0.6 X10'3 (1.1-4.8); MEAN CORPUSCULAR HEMOGLOBIN 31.7 PG (27.0-31.0); MEAN CORPUSCULAR HGB CONC 33.9 % (33.0-36.5); MEAN CORPUSCULAR VOLUME 93.7 FL (78-98); MEAN PLATELET VOLUME 8.8 FL (7.4-10.4); MONOCYTES # (AUTO) 1.7 X10'3 (0-0.9); MONOCYTES % (AUTO) 2.9 % (2-12); NEUTROPHILS # (AUTO) 56.1 X10'3 (1.8-7.7); NEUTROPHILS % (AUTO) 94.8 % (42-75); PLATELET COUNT 90 X10'3 (140-440); RED BLOOD COUNT 2.86 X10'6 (4.70-6.10); RED CELL DISTRIBUTION WIDTH 17.5 % (11.5-14.5)
[2017-07-25 04:25] LABS: OXYGEN SATURATION (MIXED VEN) 65.6 % (60-80); PO2 MIXED VENOUS (TEMP COR) 32.4 mmHg (35-46)
[2017-07-25 04:47] LABS: ALBUMIN 3.5 G/DL (3.4-5.0); ALKALINE PHOSPHATASE 469 IU/L (46-116); ANION GAP 13 (8-16); BILIRUBIN,TOTAL 8.3 MG/DL (0.1-1.0); BLOOD UREA NITROGEN 30 MG/DL (7-18); BUN/CREATININE RATIO 18.8 (5.4-32.0); CALCIUM 6.6 MG/DL (8.5-10.1); CHLORIDE 102 MMOL/L (99-107); GLUCOSE 140 MG/DL (70-104); POTASSIUM 4.4 MMOL/L (3.5-5.1); SODIUM 135 MMOL/L (135-145); TOTAL CARBON DIOXIDE 20.1 MMOL/L (24-32); eGFR 42 ML/MIN
[2017-07-25 04:56] LABS: WHITE BLOOD COUNT 59.1 X10'3 (4.5-11.0)
[2017-07-25 05:01] LABS: NUCLEATED RED BLOOD CELLS 3 /100WBC (0-0); TOTAL CELLS COUNTED 100
[2017-07-25 05:02] LABS: ANISOCYTOSIS 1+; PLATELET ESTIMATE DECREASED; TOXIC GRANULATION 1+; TOXIC VACUOLATION FEW
[2017-07-25 05:03] LABS: ALANINE AMINOTRANSFERASE 2914 U/L (12-78); ALBUMIN/GLOBULIN RATIO 3.5 (1.1-1.5); ASPARTATE AMINO TRANSFERASE 6789 U/L (10-37); PHOSPHORUS 3.5 MG/DL (2.3-4.5); TOTAL PROTEIN 4.5 G/DL (6.4-8.2)
[2017-07-25 05:05] LABS: BURR CELLS FEW; POLYCHROMASIA 1+
[2017-07-25] MEDS: LACTOBACILLUS RHAMNOSUS GG 15 billion unit sprinkle caps PO SCH (07:30)
[2017-07-25 07:42] LABS: PROTHROMBIN TIME 40.6 SECONDS (9.0-12.0)
[2017-07-25 07:44] LABS: INR 4.1 INR; PARTIAL THROMBOPLASTIN TIME 128 SECONDS (22-32)
[2017-07-25] MEDS: midodrine 5mg tablet PO SCH (08:00)
[2017-07-25] MEDS: folic acid 1mg tablet PO SCH (08:00)
[2017-07-25] MEDS: thiamine 100mg tablet PO SCH (08:00)
[2017-07-25] MEDS: [UNRECOGNIZED DRUG - REMARK] IV SCH ×4 (08:23)
[2017-07-25] MEDS: nystatin 15 GM powder TP SCH (08:28)
[2017-07-25] MEDS: fluconazole-Diflucan 200mg/NS 100 ML IV SCH (08:38)
[2017-07-25] MEDS: linezolid 600mg/300ml PREMIX 300 ML IV SCH (08:39)
[2017-07-25] MEDS: cefepime 1GM/NS ADD-VANTAGE 100 ML IV SCH (08:47)
[2017-07-25] MEDS: metroNIDAZOLE-Flagyl 500mg/NS 100 ML IV SCH (08:49)
[2017-07-25] MEDS: pantoprazole 40 MG vial IV SCH (08:51)
[2017-07-25] MEDS: hydrocortisone sod succ/PF 100mg/2ml inj. IV SCH (08:51)
[2017-07-25] MEDS ORDERED: LORazepam 2 mg/ml vial IV PRN (10:45)
== END 2017-07-25 15:41 | disposition expired | DRG 981 ==
LOC: ER 12:21 → ED HOLD 23:11 → CANBEDREQ 07-08 07:28 → PCU 3S 07-08 09:41 → ICU 2S 07-12 02:41
PROVIDERS: ADMIT Internal Medicine; ATTEND Surgery
PROC: 0DB68ZX Excision of Stomach, Via Natural or Artificial Opening Endoscopic, Diagnostic (ICD-10-PCS; principal; 2017-07-11)
PROC: 0W3P0ZZ Control Bleeding in Gastrointestinal Tract, Open Approach (ICD-10-PCS; 2017-07-12)
PROC: 0DN90ZZ Release Duodenum, Open Approach (ICD-10-PCS; 2017-07-12)
PROC: 0DQ70ZZ Repair Stomach, Pylorus, Open Approach (ICD-10-PCS; 2017-07-12)
PROC: 0FT40ZZ Resection of Gallbladder, Open Approach (ICD-10-PCS; 2017-07-12)
PROC: 5A1955Z Respiratory Ventilation, Greater than 96 Consecutive Hours (ICD-10-PCS; 2017-07-12)
PROC: 0BH18EZ Insertion of Endotracheal Airway into Trachea, Via Natural or Artificial Opening Endoscopic (ICD-10-PCS; 2017-07-12)
PROC: 30233L1 Transfusion of Nonautologous Fresh Plasma into Peripheral Vein, Percutaneous Approach (ICD-10-PCS; 2017-07-12)
PROC: 30233N1 Transfusion of Nonautologous Red Blood Cells into Peripheral Vein, Percutaneous Approach (ICD-10-PCS; 2017-07-12)
PROC: 30233R1 Transfusion of Nonautologous Platelets into Peripheral Vein, Percutaneous Approach (ICD-10-PCS; 2017-07-12)
PROC: 30233K1 Transfusion of Nonautologous Frozen Plasma into Peripheral Vein, Percutaneous Approach (ICD-10-PCS; 2017-07-12)
PROC: 30233M1 Transfusion of Nonautologous Plasma Cryoprecipitate into Peripheral Vein, Percutaneous Approach (ICD-10-PCS; 2017-07-12)
PROC: 0W3P8ZZ Control Bleeding in Gastrointestinal Tract, Via Natural or Artificial Opening Endoscopic (ICD-10-PCS; 2017-07-12)
PROC: 5A1D70Z Performance of Urinary Filtration, Intermittent, Less than 6 Hours Per Day (ICD-10-PCS; 2017-07-15)
PROC: 5A1D70Z Performance of Urinary Filtration, Intermittent, Less than 6 Hours Per Day (ICD-10-PCS; 2017-07-17)
PROC: B44FZZZ Ultrasonography of Right Lower Extremity Arteries (ICD-10-PCS; 2017-07-18)
PROC: 04HK33Z Insertion of Infusion Device into Right Femoral Artery, Percutaneous Approach (ICD-10-PCS; 2017-07-18)
PROC: 5A1D70Z Performance of Urinary Filtration, Intermittent, Less than 6 Hours Per Day (ICD-10-PCS; 2017-07-19)
PROC: 5A1D70Z Performance of Urinary Filtration, Intermittent, Less than 6 Hours Per Day (ICD-10-PCS; 2017-07-21)
PROC: 02HV33Z Insertion of Infusion Device into Superior Vena Cava, Percutaneous Approach (ICD-10-PCS; 2017-07-22)
PROC: 06HM33Z Insertion of Infusion Device into Right Femoral Vein, Percutaneous Approach (ICD-10-PCS; 2017-07-23)
DX: I47.1 Supraventricular tachycardia (principal); A41.9 Sepsis, unspecified organism; J96.00 Acute respiratory failure, unspecified whether with hypoxia or hypercapnia; R57.8 Other shock; R65.21 Severe sepsis with septic shock; J18.9 Pneumonia, unspecified organism; N17.9 Acute kidney failure, unspecified; K26.0 Acute duodenal ulcer with hemorrhage; S32.592A Other specified fracture of left pubis, initial encounter for closed fracture; B37.81 Candidal esophagitis; D62 Acute posthemorrhagic anemia; C34.90 Malignant neoplasm of unspecified part of unspecified bronchus or lung; K76.6 Portal hypertension; I48.91 Unspecified atrial fibrillation; J44.9 Chronic obstructive pulmonary disease, unspecified; G89.29 Other chronic pain; J98.01 Acute bronchospasm; K66.0 Peritoneal adhesions (postprocedural) (postinfection); K74.60 Unspecified cirrhosis of liver; N40.0 Benign prostatic hyperplasia without lower urinary tract symptoms; F17.200 Nicotine dependence, unspecified, uncomplicated; W19.XXXA Unspecified fall, initial encounter; Z51.5 Encounter for palliative care; Z90.81 Acquired absence of spleen; Z79.52 Long term (current) use of systemic steroids; Z88.5 Allergy status to narcotic agent; Z88.8 Allergy status to other drugs, medicaments and biological substances; Y92.89 Other specified places as the place of occurrence of the external cause
CPT/HCPCS: 36415; 36600; 43236; 43239; 71045; 71250; 72192; 73502; 74176; 76010; 78582; 80047; 80048; 80053; 80069; 80202; 81003; 82150; 82272; 82330; 82550; 82570; 82607; 82746; 82803; 82810; 82948; 83036; 83605; 83735; 84100; 84134; 84145; 84300; 84439; 84443; 84478; 84484; 85018; 85025; 85027; 85379; 85384; 85610; 85730; 86885; 86900; 86901; 86920; 87040; 87070; 87077; 87186; 87340; 88304; 88305; 88342; 90935; 93005; 93306; 93308; 93970; 94002; 94003; 94640; 94760; 96365; 96375; 96376; 97116; 97162; 97530; 99285; A4315; A4620; A6196; A6209; A6212; A6213; A6222; A6253; A6255; A6257; A6258; A6266; A6402; A6446; A6449; A7000; A7015; A9539; A9540; C1751; C1758; C1894; C9113; G0257; G0500; J0153; J0171; J0282; J0330; J0461; J0692; J0694; J0885; J1170; J1450; J1580; J1644; J1650; J1720; J1815; J1940; J2020; J2250; J2270; J2354; J2370; J2405; J2597; J2765; J2930; J3010; J3370; J3475; J3490; J7030; J7120; J7512; P9012; P9016; P9035; P9045; P9047; P9059; Q0163; Q9963